=== PATIENT | female | born 1950 | race Caucasian/White ===

== ENCOUNTER 2020-10-29 13:03 | Inpatient (IN) | payer MEDICARE, BC ==
--- NOTE | 2020-10-29 13:59 | ED ---
General Adult HPI - General Chief complaint: Neuro Symptoms/Deficit Stated complaint: Confused/weakness/uti Time Seen by Provider: 10/29/20 13:05 Source: patient, RN notes reviewed, old records reviewed Mode of arrival: EMS Limitations: no limitations - History of Present Illness Initial comments: This a 70-year-old female who presents to the emergency department from [facility] patient was an inpatient there and has a history of brain cancer she was evaluated there for weakness. According to the report some altered mental status possibly even though the documentation in the ER did not mention that. Patient was sent here for a neuro consult patient was an inpatient there and we had no inpatient bed so they transferred to the ER. Patient herself has no complaints while lying in bed. Patient has had multiple falls according to the documentation she had multiple CAT scans there that showed no acute abnormality. Patient had no documented history of fever blood work was done and reviewed. - Related Data Allergies Allergy/AdvReac Type Severity Reaction Status Date / Time acetaminophen Allergy Anaphylaxis Verified 10/29/20 15:02 [From Darvocet-N] azithromycin [From Zithromax] Allergy Anaphylaxis Verified 10/29/20 15:02 chlordiazepoxide Allergy Anaphylaxis Verified 10/29/20 15:02 [From Librium] propoxyphene Allergy Anaphylaxis Verified 10/29/20 15:02 [From Darvocet-N] Review of Systems ROS Statement: Those systems with pertinent positive or pertinent negative responses have been documented in the HPI. ROS Other: All systems not noted in ROS Statement are negative. Past Medical History Past Medical History: Unable to Obtain History of Any Multi-Drug Resistant Organisms: None Reported Past Surgical History: Unable to Obtain Past Psychological History: No Psychological Hx Reported Smoking Status: Former smoker Past Alcohol Use History: None Reported Past Drug Use History: None Reported General Exam - General Exam Comments Initial Comments: GENERAL: Patient is well-developed and well-nourished. Patient is nontoxic and well- hydrated and is in no acute distress. ENT: Neck is soft and supple. No significant lymphadenopathy is noted. Oropharynx is clear. Moist mucous membranes. Neck has full range of motion without eliciting any pain. EYES: The sclera were anicteric and conjunctiva were pink and moist. Extraocular movements were intact and pupils were equal round and reactive to light. Eyelids were unremarkable. PULMONARY: Unlabored respirations. Good breath sounds bilaterally. No audible rales rhon chi or wheezing was noted. CARDIOVASCULAR: There is a regular rate and rhythm without any murmurs gallops or rubs. ABDOMEN: Soft and nontender with normal bowel sounds. SKIN: She has some old bruising on her legs and a slight bruise to the lower left side of her back NEUROLOGIC: Patient is alert and oriented 2. Cranial nerves II through XII are grossly intact. Motor and sensory are also intact. Normal speech, volume and content. Symmetrical smile. MUSCULOSKELETAL: Normal extremities with adequate strength and full range of motion. LYMPHATICS: No significant lymphadenopathy is noted PSYCHIATRIC: Difficult to evaluate secondary to the patient being oriented 2 only Limitations: no limitations Course Vital Signs 10/29/20 10/29/20 13:05 14:54 Temperature 98.5 F Pulse Rate 83 104 H Respiratory 16 18 Rate Blood Pressure 180/96 O2 Sat by Pulse 92 L 93 L Oximetry Medical Decision Making - Medical Decision Making I spoke with Dr. richmnod he agreed to admit the patient admitted the patient I consult neurology Disposition Clinical Impression: History of brain cancer, Generalized weakness, Altered mental status Disposition: ADMITTED IP TO THIS HOSP Referrals: None,Stated [Primary Care Provider] - 1-2 days Time of Disposition: 15:25
[2020-10-29] MEDS ORDERED: SODIUM CHLORIDE 0.9% 1,000 ML IV ONE (15:26)
[2020-10-29] MEDS ORDERED: ACETAMINOPHEN TAB 325 MG TAB PO PRN (18:09)
--- NOTE | 2020-10-29 18:25 | P.CNNES ---
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 History is obtained from patient's family members and medical records. Per family members patient has been more sleepy and more confused than normal since yesterday. She also complained of chest pain so they pursued medical attention. They did not see any seizure-like acitivty. At [place] she was told she had UTI. Because of altered mental status as a result the patient was transferred to our facility to our ER department for escalation of care for neurology evaluation. It seems that the patient had a CAT scan which showed no acute abnormality. There is no fevers that was reported at at outside facility. She shuffles her feet, falling a lot, hard time finding her words, walker more since July 2020 and her neurology team felt she was more rigid. Per the son who is at bedside, he stated that patient has been significantly declining for the past 1 1/2 month, having frequent falls, in which she has generalized weakness, has word finding difficulty. He felt that patient has fluctuation of her condition on/off but significantly worsening in 1 1/2 month. She would fall even though she uses a walker. The patient is following-up with Dr. Beauchamp's team and is seeing Dr. Beauchamp's team and they feels possibly she has ?Lewy Body Dementia. She was suppose to get Eamon scan tomorrow requested by Dr. Beauchamp's office. Her seizure was GTC and per family no seizure since on medications. She is on Keppra 750mg 2 tab bid and Dilantin 100mg 2 tab bid. She received radiation therapy end (6 weeks), chemotherapy (had it for 2 years, June 2019 and stopped after that because patient did not want to pursue with it). She used to follow-up with her neurosurgeon (over at [facility]). For her Oncologist she follows-up with Dr. Bruce. She had MRI Brain this past March 2020 and was told it was stable. She get them yearly basis. Workup in our facility consisted of: Initial vital signs is blood pressure of 180/96, heart rate of 83, respiratory of 16, temperature of 98.5 Fahrenheit orally and pulse ox of the 92 at room air. Review of Systems Review of system is limited and the pertitent positive and negative as per HPI. Past Medical History Past Medical History: Unable to Obtain Additional Past Medical History / Comment(s): Allergic Rhinitis, Gallstones, Brain CA:lemon sized tumor removed (2011). History of Any Multi-Drug Resistant Organisms: None Reported Past Surgical History: Unable to Obtain Additional Past Surgical History / Comment(s): colonoscopy, brain sx, breast biopsy Past Psychological History: No Psychological Hx Reported Smoking Status: Former smoker Past Alcohol Use History: None Reported Past Drug Use History: None Reported Medications and Allergies Home Medications Medication Instructions Recorded Confirmed Type Albuterol Inhaler [Ventolin Hfa 2 puff INHALATION RT-Q4H PRN 10/29/20 10/29/20 History Inhaler] Ascorbic Acid [Vitamin C] 250 mg PO DAILY 10/29/20 10/29/20 History Aspirin 81 mg PO DAILY 10/29/20 10/29/20 History Atorvastatin [Lipitor] 40 mg PO DAILY 10/29/20 10/29/20 History Calcium Carbonate/Vitamin D3 1 tab PO BID 10/29/20 10/29/20 History [Calcium 500 mg Chewable Tablet] Cholecalciferol [Vitamin D3 (25 25 mcg PO DAILY 10/29/20 10/29/20 History Mcg = 1000 Iu)] Escitalopram [Lexapro] 10 mg PO DAILY 10/29/20 10/29/20 History Fluticasone/Salmeterol [Advair 1 puff INHALATION RT-BID 10/29/20 10/29/20 History 250-50 Diskus] Multivitamin [Multivitamins Adult 1 tab PO DAILY 10/29/20 10/29/20 History Gummies] Omeprazole 20 mg PO DAILY 10/29/20 10/29/20 History Phenytoin Sodium Extended 200 mg PO BID 10/29/20 10/29/20 History [Dilantin] Umeclidinium [place] [Incruse 1 puff INHALATION RT-DAILY 10/29/20 10/29/20 History Ellipta] amLODIPine [Norvasc] 5 mg PO DAILY 10/29/20 10/29/20 History levETIRAcetam [Keppra] 500 mg PO BID 10/29/20 10/29/20 History lisinopriL 40 mg PO DAILY 10/29/20 10/29/20 History Allergies Allergy/AdvReac Type Severity Reaction Status Date / Time azithromycin [From Zithromax] Allergy Anaphylaxis Verified 10/29/20 17:46 chlordiazepoxide Allergy Anaphylaxis Verified 10/29/20 17:46 [From Librium] propoxyphene Allergy Anaphylaxis Verified 10/29/20 17:46 [From Darvocet-N] Physical Examination - Vital Signs Vital Signs: Vital Signs Temp Pulse Resp BP Pulse Ox 10/29/20 14:54 104 H 18 180/96 93 L 10/29/20 13:05 98.5 F 83 16 92 L Intake and Output 10/29/20 10/29/20 10/29/20 06:59 14:59 22:59 Other: Weight 97.522 kg GENERAL: The patient is lying in bed and does not seem in acute distress but seems restless. CHEST: The heart rate is regular rate rhythm. No murmurs to auscultation. No carotid bruit bilaterally. LUNG: Clear to auscultation bilaterally no wheezing noted throughout. Not labored breathing. ABDOMEN/GI: Bowel sounds present in all 4 quadrants. No tenderness to palpation throughout. NEUROLOGICAL: Higher mental function: The patient is awake, alert, oriented to self. She stated the year was in 0s. Could not tell me name of place. Upon showing her a pen she stated it was a pencil. With options she correctly named her son who is at bedside. Patient is following simple commands (thumbs up, squeezing finger and closing and opening eyes). Has word finding difficulty. No neglect. Cranial nerves: The pupils are round, equal and reactive to light. Visual torrez could not assess. Extraocular movement is able to look to right and left without difficulty. No facial weakness. No dysarthria. Could not assess rest because of her condition. Motor: Gait is deferred. The strength is able to raise all extremities above gravity without drift. Normal tone and bulk. Cerebellum: Could not assess. Sensation: Could not assess. Reflexes (right/left): 2+ throughout upper while lowers are 1+. Plantars are mute bilaterally. Assessment and Plan Assessment: Altered mental status with generalized weakness. 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 Beauchamp) Acute urinary tract infection (per outside facility) Acute chest pain Hypertension with presentation of blood pressure elevated Dyslipidemia Plan: I ordered a routine EEG. Ordered TSH, folate, vitamin B12 levels. Continued her Keppra 750mg 2 tab bid and Dilantin 100mg 2 tab bid (I started both IV for now). I'll get levels of her antiepileptic drugs. Will consider MRI of the brain with and without once the patient is more stable. Every 4 hours neuro checks. PT, OT and SKIVER OPERATOR are consulted. We'll defer the rest of the medical management to primary team. Notified the son, the patient needs to follow-up with her neurologist as outpatient for further evaluation of this suspicious of Lewy Body dementia (her neurologist suspected). The son will try to arrange patient to be living in a nursing facility. Recommend patient to follow-up with her neurologist within 1- 2 weeks as outpatient. The plan is discussed with the patient's son (Dalton) who is at bedside. Thank you for the consultation. Angel Luis Mckee M.D. Neuro-hospitalist Time with Patient: Greater than 30
[2020-10-29] MEDS ORDERED: ALBUTEROL NEBULIZED 2.5 MG/3 ML INHALATION PRN (18:37)
[2020-10-29 20:11] LABS: Phenytoin (Dilantin) 15.9 ug/mL
--- NOTE | 2020-10-29 20:38 | HP ---
HISTORY AND PHYSICAL DATE OF SERVICE: 10/29/2020 CHIEF COMPLAINTS: Weakness and confusion, change in mental status. HISTORY OF PRESENT ILLNESS: This 70-year-old woman with a past medical history of multiple medical problems, including allergic rhinitis, gallstones, history of brain cancer with a lemon- sized tumor removed in 2011, being followed by Dr. Esparza in the outpatient setting, was recently living with a son in a [id number] apartment. The patient was cooking for herself patient was noted to have a UTI for the last couple of days. Patient got on antibiotics, but the patient was progressively weak for the past several weeks, according to the family. The patient was using a walker, but the patient apparently had some falls also. Because of concerns, the patient was taken to [facility], where they kept the patient overnight. Because of lack of improvement and because of concerns of an underlying neurological etiology, the patient was transferred to [facility] for further evaluation and treatment. Currently the patient is confused, able to give only a sketchy history. Most of the history is taken from my discussion with the ER physician and discussion with the patient's son at the bedside at this time. Apparently the patient has poor social support, and her son goes to work all day. PAST MEDICAL HISTORY: History of allergic rhinitis, gallstone, history of brain lesion and surgery. MEDICATIONS: Home medications are multivitamins, calcium, Dilantin, omeprazole, vitamin D3, aspirin, vitamin C, lisinopril, Keppra, Lexapro, Norvasc Advair, Lipitor, Ventolin. ALLERGIES: ZITHROMAX, LIBRIUM, DARVOCET-N 100. FAMILY HISTORY: No history of heart disease or strokes in the family. SOCIAL HISTORY: Previous history of smoking. REVIEW OF SYSTEMS: Review of systems could not be taken; the patient is confused. PHYSICAL EXAMINATION: Patient is conscious, confused. Pulse 94, blood pressure 161/89, respiration 18, temperature 99.2, pulse ox 98% on room air. HEENT: Conjunctivae normal. Oral mucosa dry. NECK: No jugular venous distention. CARDIOVASCULAR: S1, S2 muffled. RESPIRATION: Breath sounds diminished at the bases. Scattered rhonchi and crackles. ABDOMEN: Soft, obese, non-tender. LEGS: No edema. No swelling. NERVOUS SYSTEM: Higher functions as mentioned earlier. Moves all 4 limbs. Mild diffuse weakness. LYMPHATICS: No lymph node palpable in neck, axillae or groin. SKIN: No ulcer, rash, bleeding. JOINTS: No active deforming arthropathy. LABS: Not available. ASSESSMENT: 1. Change in mental status, acute metabolic encephalopathy, multifactorial. 2. Possible acute urinary tract infection with sepsis. 3. History of brain lesion removal. 4. History of possible seizure disorder. 5. Gait dysfunction. 6. History of allergic rhinitis. 7. History of gallstones. 8. History of brain biopsy. 9. Hypertension. 10.Chronic obstructive pulmonary disease history. 11.Hyperlipidemia. 12.Obesity with body mass index of 34.7. 13.Gait dysfunction. 14.FULL CODE. RECOMMENDATIONS AND DISCUSSION: In this 70-year-old woman who presented with multiple complex medical issues, we will monitor the patient closely, continue the current medications, continue symptomatic treatment. Will initiate broad-spectrum IV antibiotics. IV phenytoin has been initiated by Neurology. We will obtain the old charts. Otherwise, EEG. Obtain the cultures. PT/OT evaluation. We will also consider possible ECF rehab. Resume the home medications. DVT prophylaxis. Prognosis is guarded because of multiple complex medical issues. Further recommendations to follow. Discussed with the patient's son at bedside, who understands and agrees. Further recommendations to follow. Home medications will be continued when they are confirmed. MMODL / IJN: [id number] / SHAYNA
[2020-10-29] MEDS: SYMBICORT 80-4.5 MCG INHALER INHALATION SCH (21:15)
[2020-10-29] MEDS: HEPARIN SODIUM,PORCINE/PF 5,000 UNIT/0.5 ML SYRINGE SQ SCH (22:04)
[2020-10-29] MEDS: levETIRAcetam IV 1,500 MG in SALINE 1 100ML.BAG IVPB SCH (22:04)
[2020-10-29] MEDS: PHENYTOIN SODIUM INJ 50 MG/ML 2 ML VIAL IVP SCH (22:56)
[2020-10-29] MEDS: CALCIUM CARB-VIT D 500 MG-5 MCG TAB PO SCH (22:56)
[2020-10-29 23:15] LABS: Appearance,Urine Clear (Clear); Bilirubin,Urine Negative (Negative); Blood,Urine Negative (Negative); Color,Urine Yellow; Glucose,Urine (UA) Negative (Negative); Ketones,Urine 3+ (Negative); Leukocyte Esterase,Urine Negative (Negative); Nitrite,Urine Negative (Negative); PH, Urine 6.5 (5.0-8.0); Protein,Urine Trace (Negative); Specific Gravity,Urine 1.017 (1.001-1.035); Urobilinogen,Urine <2.0 mg/dL (<2.0)
[2020-10-30] MEDS: SYMBICORT 80-4.5 MCG INHALER INHALATION SCH ×2 (07:26→19:51)
[2020-10-30] MEDS: IPRATROPIUM 0.5 MG/2.5 ML NEBU INHALATION SCH ×4 (07:26→19:50)
[2020-10-30 07:46] LABS: Basophils % (A) 0 %; Eosinophils # (A) 0.1 k/uL (0-0.7); Eosinophils % (A) 1 %; HCT 41.2 % (34.0-46.0); HGB 13.8 gm/dL (11.4-16.0); Lymphocytes # (A) 0.4 k/uL (1.0-4.8); Lymphocytes % (A) 7 %; MCH 31.2 pg (25.0-35.0); MCHC 33.5 g/dL (31.0-37.0); MCV 93.2 fL (80.0-100.0); Mean Platelet Volume 7.4; Monocytes # (A) 0.4 k/uL (0-1.0); Monocytes % (A) 6 %; Neutrophils # (A) 5.5 k/uL (1.3-7.7); Neutrophils % (A) 84 %; Platelet Count 170 k/uL (150-450); Poikilocytosis Slight; RBC 4.42 m/uL (3.80-5.40); WBC 6.6 k/uL (3.8-10.6)
[2020-10-30] MEDS: ASPIRIN 81 MG PO SCH (10:54)
[2020-10-30] MEDS: ATORVASTATIN 40 MG TAB PO SCH (10:55)
[2020-10-30] MEDS: PANTOPRAZOLE 40 MG TABLET PO SCH (10:55)
[2020-10-30] MEDS: lisinopriL 20 MG TAB PO SCH (10:55)
[2020-10-30] MEDS: FOLIC ACID 1 MG TAB PO SCH (10:55)
[2020-10-30] MEDS: amLODIPine 5 MG TAB PO SCH (10:55)
[2020-10-30] MEDS: MULTIVITAMINS, THERA 1 EACH TAB PO SCH (10:55)
[2020-10-30] MEDS: ASCORBIC ACID 500 MG TAB PO SCH (10:55)
[2020-10-30] MEDS: CALCIUM CARB-VIT D 500 MG-5 MCG TAB PO SCH ×2 (10:55→20:25)
[2020-10-30] MEDS: PHENYTOIN SODIUM INJ 50 MG/ML 2 ML VIAL IVP SCH (10:56)
[2020-10-30] MEDS: THIAMINE 100 MG TAB PO SCH (10:56)
[2020-10-30] MEDS: HEPARIN SODIUM,PORCINE/PF 5,000 UNIT/0.5 ML SYRINGE SQ SCH ×2 (10:56→20:25)
[2020-10-30] MEDS: CHOLECALCIFEROL 25 MCG (1000 IU) TABLET PO SCH (10:56)
[2020-10-30] MEDS: levETIRAcetam IV 1,500 MG in SALINE 1 100ML.BAG IVPB SCH (11:39)
[2020-10-30 12:22] LABS: Folate, Serum >24.0 ng/mL
[2020-10-30 14:11] LABS: African American GFR (CKD) 105.5 (60.0-200.0); Anion Gap 11.5 mmol/L (4.00-12.00); BUN/Creat Ratio 16.67 Ratio (12.00-20.00); Calcium 9.1 mg/dL (8.7-10.3); Carbon Dioxide 25.5 mmol/L (21.6-31.8); Non-African American GFR(CKD) 91.1 (60.0-200.0); Potassium 3.3 mmol/L (3.5-5.5)
[2020-10-30 14:36] VITALS: BMI 34.7
--- NOTE | 2020-10-30 16:03 | EEG ---
ELECTROENCEPHALOGRAM REPORT DATE OF SERVICE: 10/30/2020. CLINICAL HISTORY: This is a 70-year-old woman with a history of left frontal cancer, status post resection, seizure, who presents with altered mental status. The video EEG is obtained to evaluate for seizure epileptiform activity. RELEVANT MEDICATION: The patient is on Keppra as well as the Dilantin. EEG TYPE: A routine 21-channel EEG is performed with video using the 10/20 electrode placement system. DESCRIPTION: Awake and drowsy state is obtained. During awake state, the background consists of 7- 7.5 hertz activity that is well modulated and well sustained over the right while the posterior-dominant rhythm over the left consists of 6-7 hertz activity. During drowsiness there is slowing and attenuation of background activity. There was no physiological sleep architecture. There is occasional to frequent delta slowing over the left frontal central temporal parietal region. There is high amplitude activity over the left frontal central temporal region. Interictal and ictal is none. ACTIVATION PROCEDURE: Photic stimulation did not evoke a posterior driving response. There is no abnormality during the photic stimulation. CLINICAL INTERPRETATION: This is an abnormal routine EEG. The background is asymmetrical and is mild over the right while mild to moderate over the left. The focal slowing, as stated in the body of the report, is suggestive of focal cerebral dysfunction in the involved region. The breach rhythm is consistent with the patient's history of skull defect. There are no epileptiform discharges or seizure on the EEG. Clinical correlation is recommended. MMYULIYA / IJN: [id number] / MTDD
--- NOTE | 2020-10-30 17:30 | PN ---
PROGRESS NOTE DATE OF SERVICE: 10/30/2020 This 70-year-old woman who was admitted with weakness and confusion had possible acute UTI with sepsis. The patient was recently treated for UTI in the outpatient setting. The patient had hypokalemia. No chest pain. No palpitations. No fever. PHYSICAL EXAMINATION: On exam patient is conscious but confused. Pulse 72, blood pressure 135/64, respirations 16, temperature 98.7, pulse ox 93% on room air. HEENT: Conjunctivae normal. NECK: No jugular venous distention. CARDIOVASCULAR: S1, S2 muffled. RESPIRATION: Breath sounds diminished at the bases. Scattered rhonchi. ABDOMEN: Soft. LEGS: No edema. No swelling. NERVOUS SYSTEM: No focal deficit. LABS: CBC, BMP noted. Potassium 3.5. Other labs are reviewed. Cultures are negative so far. ASSESSMENT: 1. Change in mental status, acute metabolic encephalopathy, multifactorial. 2. Possible acute urinary tract infection with sepsis. 3. Hypokalemia. 4. History of brain lesion removal. 5. History of possible acute seizure disorder. 6. Gait dysfunction. 7. History of allergic rhinitis. 8. History of gallstones. 9. History of brain biopsy. 10.Hypertension. 11.History of chronic obstructive pulmonary disease. 12.Hyperlipidemia. 13.Obesity with body mass index of 34.7. 14.Gait dysfunction. 15.History of oligodendroglioma. 16.FULL CODE. RECOMMENDATIONS AND DISCUSSION: I recommend to continue current medications, continue symptomatic treatment. Otherwise, Neurology has also seen the patient and recommended to continue with conservative line of management. PT/OT evaluation also. We will continue to monitor. Dr. Beauchamp is also working up the patient in the outpatient setting. Phenytoin level is 15.9. Discussed with the family, who understands and agrees. Further recommendations to follow. MMODL / IJN: [id number] /
--- NOTE | 2020-10-30 18:32 | P.PN ---
Subjective Progress Note Date: 10/30/20 Patient is seen at bedside and and the was notified by nursing staff that she is less agitated and restless compared to yesterday. Currently she is having her lunch upon seeing her. Objective - Vital Signs Vital signs: Vital Signs Temp 98.7 F 10/30/20 11:12 Pulse 78 10/30/20 15:32 Resp 16 10/30/20 11:12 BP 134/65 10/30/20 11:12 Pulse Ox 93 L 10/30/20 11:12 Intake & Output 10/29/20 10/30/20 10/30/20 18:59 06:59 18:59 Intake Total 590 1050 Output Total 450 400 Balance 140 650 Weight 97.522 kg 97.522 kg 97.522 kg Intake: Intake, IV Titration 750 Amount Sodium Chloride 0.9% 1, 600 000 ml @ 75 mls/hr IV . [id number] Rx#:[id number] cefTRIAXone 1 gm In 50 Sodium Chloride 0.9% 50 ml @ 100 mls/hr IVPB Q24HR [facility] Rx#:[id number] levETIRAcetam IV 1,500 mg 100 In Saline 1 100ml.bag @ 400 mls/hr IVPB Q12HR [facility] Rx#:[id number] Oral 590 300 Output: Urine 250 400 Straight 400 Emesis 200 Other: Voiding Method Diaper Indwelling Catheter # Voids 2 - Exam GENERAL: The patient is lying in bed and does not seem in acute distress. Is not restless and seems more cooperative. Is having her lunch. NEUROLOGICAL: Higher mental function: The patient is awake, alert, oriented to self. She could not tell me place or time. She able to name watch correctly. Patient is following simple commands (thumbs up, squeezing finger and closing and opening eyes). Has word finding difficulty and seems to have preservation of words. No neglect. Cranial nerves: The pupils are round, equal and reactive to light. Visual torrez could not assess. Extraocular movement is able to look to right and left without difficulty. No facial weakness. No dysarthria. Could not assess rest because of her condition. Motor: Gait is deferred. The strength is able to raise all extremities above gravity without drift. Normal tone and bulk. Cerebellum: Could not assess. Sensation: Could not assess. Reflexes (right/left): 2+ throughout upper while lowers are 1+. Plantars are mute bilaterally. WORK-UP: CBC with differential is within normal limits. Creatinine is 0.6, calcium is 9.1 and sodium is 138 which is within normal limits. Serum vitamin B12 is 651, folate level serum is more than 24 and TSH is 1.460 and all within normal limits. Dilantin level is 15.9 which is conservative therapeutic range. She had a CAT scan at outside facility which showed no acute abnormality. - Labs CBC & Chem 7: 10/30/20 07:17 10/30/20 07:17 Labs: Abnormal Lab Results - Last 24 Hours (Table) 10/29/20 10/30/20 10/30/20 Range/Units 22:56 07:17 07:17 Lymphocytes # 0.4 L (1.0-4.8) k/uL Potassium 3.3 L (3.5-5.5) mmol/L Urine Protein Trace H (Negative) Urine Ketones 3+ H (Negative) Microbiology - Last 24 Hours (Table) 10/29/20 22:56 Urine Culture - Preliminary Urine,Catheterized Assessment and Plan Assessment: Altered mental status with generalized weakness. Encephalopathy likely due to underlying UTI ---is less restless and more cooperative today compared to yesterday. 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 Beauchamp) Acute urinary tract infection (per outside facility) Acute chest pain Hypertension with presentation of blood pressure elevated Dyslipidemia Plan: * Continued her Keppra 750mg 2 tab bid and Dilantin 100mg 2 tab bid (and placed her back from IV to PO). * Ordered MRI of the brain with and without. * Pending Keppra level. * Routine EEG on 10/30/2020 (preliminary read): This is an abnormal routine EEG. The background is asymmetrical and is mild over the right and mild to moderate over the left. The focal slowing over the left frontal/central/temporal/parietal region is suggestive of focal cerebral dysfunction in the involved region. The breach rhythm is consistent with the patient history of skull defect. There are no epileptiform discharges or seizure on the EEG. * She is on her home dose of aspirin 81, Lipitor 40 mg daily at bedtime. * She is on folic acid 1 mg daily. * Every 4 hours neuro checks. * PT, OT and SMOKE EATER are consulted. * We'll defer the rest of the medical management to primary team. * Notified the son, the patient needs to follow-up with her neurologist as outpatient for further evaluation of this suspicious of Lewy Body dementia (her neurologist suspected). The son will try to arrange patient to be living in a nursing facility. Recommend patient to follow-up with her neurologist within 1-2 weeks as outpatient. The plan is discussed with the patient's nurse. Angel Luis Mckee M.D. Neuro-hospitalist Time with Patient: Less than 30
[2020-10-30] MEDS: PHENYTOIN SODIUM EXTENDED 100 MG CAP PO SCH (20:25)
[2020-10-30] MEDS: SODIUM CHLORIDE 0.9% 1,000 ML IV SCH (20:25)
[2020-10-31] MEDS: PHENYTOIN SODIUM EXTENDED 100 MG CAP PO SCH ×2 (07:58→20:45)
[2020-10-31] MEDS: PANTOPRAZOLE 40 MG TABLET PO SCH (07:59)
[2020-10-31] MEDS: FOLIC ACID 1 MG TAB PO SCH (07:59)
[2020-10-31] MEDS: THIAMINE 100 MG TAB PO SCH ×3 (08:00→08:10)
[2020-10-31] MEDS: HEPARIN SODIUM,PORCINE/PF 5,000 UNIT/0.5 ML SYRINGE SQ SCH ×2 (08:01→20:45)
[2020-10-31] MEDS: CALCIUM CARB-VIT D 500 MG-5 MCG TAB PO SCH ×2 (08:05→20:45)
[2020-10-31] MEDS: ASPIRIN 81 MG PO SCH (08:06)
[2020-10-31] MEDS: ASCORBIC ACID 500 MG TAB PO SCH (08:06)
[2020-10-31] MEDS: lisinopriL 20 MG TAB PO SCH (08:07)
[2020-10-31] MEDS: CHOLECALCIFEROL 25 MCG (1000 IU) TABLET PO SCH (08:08)
[2020-10-31] MEDS: ATORVASTATIN 40 MG TAB PO SCH (08:08)
[2020-10-31] MEDS: amLODIPine 5 MG TAB PO SCH (08:09)
[2020-10-31] MEDS: MULTIVITAMINS, THERA 1 EACH TAB PO SCH (08:09)
[2020-10-31] MEDS: SYMBICORT 80-4.5 MCG INHALER INHALATION SCH ×2 (08:24→19:37)
[2020-10-31] MEDS: IPRATROPIUM 0.5 MG/2.5 ML NEBU INHALATION SCH ×4 (08:24→19:36)
[2020-10-31 08:51] LABS: Levetiracetam (Keppra) 16.6 ug/mL (3.0-60.0)
--- NOTE | 2020-10-31 13:17 | MR ---
EXAMINATION TYPE: MR brain wo/w con DATE OF EXAM: 10/31/2020 COMPARISON: Outside head CT 3 days ago HISTORY: altered mental status Hx of left frontal cancer TECHNIQUE: Multiplanar, multisequence images of the brain and brainstem is performed without and with IV contras t, utilizing 10 mL intravenous Gadavist . FINDINGS: Diffusion weighted images demonstrate no evidence of a recent infarct or other diffusion ab normality. There is artifact from left frontal craniotomy change. There is persistent CSF cleft over the left fr ontal lobe presumed resection cavity with local mass effect and slight over the midline extension red emonstrated. There is background mild to moderate diffuse ventricular and sulcal prominence. There ar e multifocal and confluent areas of T2 hyperintensity throughout the white matter greatest over the l eft coronal radiata standing superiorly and over the right frontal lobe. Findings are nonspecific. Co rrelate for history of radiation treatment to this level. There is abnormal extension of T2 hyperinte nsity throughout the temporal lobes bilaterally left greater than right with greater medial involveme nt. Involvement in the brain stem and level of soledad is noted. Midline structures demonstrate normal morphology. The craniocervical junction appears within normal limits. Post contrast images demonstrate dense oval enhancing mass superior left temporal lobe measuring 1.7 x 1.0 cm axial image 32 x 1.4 cm craniocaudal dimension coronal image 42 with some adjacent curviline ar and punctate enhancement extending anteriorly inferiorly from this lesion into more of the left te mporal lobe. There is also a second area of dense curvilinear enhancement along the inferior posterio r margin of the resection cavity which has some extension into the anterior hemispheric fissure also extension crossing the midline into the deep right frontal lobe immediately adjacent to the right fro ntal horn with thickened linear appearance. More mild left suspicious linear enhancement over the sup erior anterior aspect of the resection cavity. There is some irregular linear nodular enhancement ext ending from the first described lesion superiorly and anteriorly to the inferior posterior aspect of the resection cavity at the second area of suspicious enhancement. The dural venous sinuses appear patent. The visualized sinuses are clear and the globes are intact. IMPRESSION: Posttreatment changes redemonstrated. Residual or recurrent active neoplasm is strongly s uspected as detailed above extending from the posterior inferior margin of the resection cavity throu gh the inferior left frontal lobe into the superior temporal region. Right frontal lobe extension als o noted. Infiltrative appearance noted. Correlation with old outside MRI imaging may be beneficial to assess for change.
--- NOTE | 2020-10-31 19:04 | P.PN ---
Subjective Progress Note Date: 10/31/20 The patient seen at bedside and she is about the same today compared to yesterday. She remains to be the less agitated and restless compared to initial presentation. There is no focal deficit. Objective - Vital Signs Vital signs: Vital Signs Temp 98.4 F 10/31/20 12:49 Pulse 80 10/31/20 16:06 Resp 17 10/31/20 12:49 BP 126/84 10/31/20 12:49 Pulse Ox 94 L 10/31/20 12:49 Intake & Output 10/30/20 10/31/20 10/31/20 18:59 06:59 18:59 Intake Total 1050 1790 Output Total 400 300 600 Balance 650 1490 -600 Weight 97.522 kg 97.522 kg Intake: Intake, IV Titration 750 600 Amount Sodium Chloride 0.9% 1, 600 000 ml @ 50 mls/hr IV . Q20H [facility] Rx#:[id number] Sodium Chloride 0.9% 1, 600 000 ml @ 75 mls/hr IV . [id number] [facility] Rx#:[id number] cefTRIAXone 1 gm In 50 Sodium Chloride 0.9% 50 ml @ 100 mls/hr IVPB Q24HR [facility] Rx#:[id number] levETIRAcetam IV 1,500 mg 100 In Saline 1 100ml.bag @ 400 mls/hr IVPB Q12HR [facility] Rx#:[id number] Oral 300 1190 Output: Urine 400 300 600 Straight 400 300 600 Other: Voiding Method Indwelling Catheter Indwelling Catheter Indwelling Catheter - Exam GENERAL: The patient is lying in bed and does not seem in acute distress. Is not restless and seems more cooperative. Is having her lunch. NEUROLOGICAL: Higher mental function: The patient is awake, alert, oriented to self. She could not tell me place or time. She able to name watch correctly. Patient is following simple commands (thumbs up, squeezing finger and closing and opening eyes). Has word finding difficulty and seems to have preservation of words. No neglect. Cranial nerves: The pupils are round, equal and reactive to light. Visual torrez could not assess. Extraocular movement is able to look to right and left without difficulty. No facial weakness. No dysarthria. Could not assess rest because of her condition. Motor: Gait is deferred. The strength is able to raise all extremities above g ravity without drift. Normal tone and bulk. Cerebellum: Could not assess. Sensation: Could not assess. Reflexes (right/left): 2+ throughout upper while lowers are 1+. Plantars are mute bilaterally. WORK-UP: CBC with differential is within normal limits. Creatinine is 0.6, calcium is 9.1 and sodium is 138 which is within normal limits. Serum vitamin B12 is 651, folate level serum is more than 24 and TSH is 1.460 and all within normal limits. Total Dilantin level is 15.9 and free dilantin is 1.5 which are within therapeutic range. Keppra level is 16.6 (normal) Routine EEG on 10/30/2020: This is an abnormal routine EEG. The background is asymmetrical and is mild over the right and mild to moderate over the left. The focal slowing over the left frontal/central/temporal/parietal region is suggestive of focal cerebral dysfunction in the involved region. The breach rhythm is consistent with the patient history of skull defect. There are no epileptiform discharges or seizure on the EEG. MR the brain with and without is reported as post treatment changes redemonstrated. Residual or recurrent active neoplasm is strongly suspected as detailed above extending from the left posteroinferior margin of the resection cavity through the inferior left frontal lobe into the superior temporal region. Right frontal lobe extension also noted. Infiltrative appearance noted. C orrelation with old outside MRI imaging may be beneficial to assess for change. She had a CAT scan at outside facility which showed no acute abnormality. - Labs CBC & Chem 7: 10/30/20 07:17 10/30/20 07:17 Labs: Abnormal Lab Results - Last 24 Hours (Table) 10/29/20 Range/Units 19:39 RBC Folate 1,105 H (280 - 791) ng/mL Microbiology - Last 24 Hours (Table) 10/29/20 22:56 Urine Culture - Final Urine,Catheterized 10/29/20 19:39 Blood Culture - Preliminary Blood No Growth after 24 hours Assessment and Plan Assessment: Altered mental status with generalized weakness. Encephalopathy likely due to underlying UTI ---is less restless and more cooperative today compared to yesterday. 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 Beauchamp) Acute urinary tract infection (per outside facility) Acute chest pain Hypertension with presentation of blood pressure elevated Dyslipidemia Plan: * Continued her Keppra 750mg 2 tab bid and Dilantin 100mg 2 tab bid (and placed her back from IV to PO). * * She is on her home dose of aspirin 81, Lipitor 40 mg daily at bedtime. * She is on folic acid 1 mg daily. * MRI the brain with and without is reported as post treatment changes redemonstrated. Residual or recurrent active neoplasm is strongly suspected as detailed above extending from the left posteroinferior margin of the resection cavity through the inferior left frontal lobe into the superior temporal region. Right frontal lobe extension also noted. Infiltrative appearance noted. Correlation with old outside MRI imaging may be beneficial to assess for change. * Because of MRI Finding, recommend to follow-up with her neuro-oncologist and neurologist for further evaluation as inpatient (we have no old images to compared) and I feel this is more outpatient evaluation. * Every 4 hours neuro checks. * PT, OT and MOTION PICTURE CRITIC are consulted. * We'll defer the rest of the medical management to primary team. * Notified the son, the patient needs to follow-up with her neurologist as outpatient for further evaluation of this suspicious of Lewy Body dementia (her neurologist suspected). The son will try to arrange patient to be living in a nursing facility. Recommend patient to follow-up with her neurologist within 1-2 weeks as outpatient. The plan is discussed with the patient's nurse and the Nurse Practioner from the primary team. There is no further neurological work-up. Neurology will sign off. Please reconsult if needed. Angel Luis Mckee M.D. Neuro-hospitalist Time with Patient: Less than 30
[2020-10-31] MEDS: SODIUM CHLORIDE 0.9% 1,000 ML IV SCH (20:45)
--- NOTE | 2020-11-01 03:53 | P.PN ---
Subjective Progress Note Date: 10/31/20 This is a 70-year-old female who was recently admitted with increased confusion along with possible acute urinary tract infection with sepsis, present on admission and is being closely monitored. Patient continues on IV antibiotics and urine culture showing no growth. Patient was recently treated outpatient for UTI. Patient had MRI of the brain done showing residual or recurrent active neoplasm is strongly suspected extending from the left posteroinferior margin of the resection cavity through the inferior left frontal lobe into the superior temporal region. Right frontal lobe extension also noted. Infiltrative appearance noted. Correlation with old outside MRI imaging may be beneficial to assess for change. No reports of chest pain or palpitations. Denies any shortness of breath. Patient up with multiple assistance and continued unsteadiness and gait dysfunction. Will repeat am labs. Review of systems: unable to obtain as patient continues to be confused Active Medications Acetaminophen (Acetaminophen Tab 325 Mg Tab) 650 mg PO Q4HR PRN PRN Reason: Fever and/ or Pain Last Admin: 10/29/20 18:13 Dose: 650 mg Documented by: Albuterol Sulfate (Albuterol Nebulized 2.5 Mg/3 Ml) 2.5 mg INHALATION RT-Q4H PRN PRN Reason: Shortness Of Breath Amlodipine Besylate (Amlodipine 5 Mg Tab) 5 mg PO DAILY [facility] Last Admin: 10/31/20 08:09 Dose: 5 mg Documented by: Ascorbic Acid (Ascorbic Acid 500 Mg Tab) 250 mg PO DAILY [facility] Last Admin: 10/31/20 08:06 Dose: 250 mg Documented by: Aspirin (Aspirin 81 Mg) 81 mg PO DAILY [facility] Last Admin: 10/31/20 08:06 Dose: 81 mg Documented by: Atorvastatin Calcium (Atorvastatin 40 Mg Tab) 40 mg PO DAILY [facility] Last Admin: 10/31/20 08:08 Dose: 40 mg Documented by: Budesonide/Formoterol Fumarate (Symbicort 80-4.5 Mcg Inhaler) 2 puff INHALATION RT-BID [facility] Last Admin: 10/31/20 19:37 Dose: 2 puff Documented by: Calcium Carbonate (Calcium Carb-Vit D 500 Mg-5 Mcg Tab) 1 each PO BID [facility] Last Admin: 10/31/20 20:45 Dose: 1 each Documented by: Cholecalciferol (Cholecalciferol 25 Mcg (1000 Iu) Tablet) 25 mcg PO DAILY [facility] Last Admin: 10/31/20 08:08 Dose: 25 mcg Documented by: Folic Acid (Folic Acid 1 Mg Tab) 1 mg PO DAILY@1200 [facility] Last Admin: 10/31/20 07:59 Dose: 1 mg Documented by: Heparin Sodium (Porcine) (Heparin Sodium,Porcine/Pf 5,000 Unit/0.5 Ml Syringe) 5,000 unit SQ Q12HR [facility] Last Admin: 10/31/20 20:45 Dose: 5,000 unit Documented by: Ceftriaxone Sodium 1 gm/ (Sodium Chloride) 50 mls @ 100 mls/hr IVPB Q24HR [facility] Last Admin: 10/31/20 08:05 Dose: 100 mls/hr Documented by: Sodium Chloride (Saline 0.9%) 1,000 mls @ 50 mls/hr IV .Q20H [facility] Last Admin: 10/31/20 20:45 Dose: 50 mls/hr Documented by: Ipratropium [place] (Ipratropium 0.5 Mg/2.5 Ml Nebu) 0.5 mg INHALATION RT-QID [facility] Last Admin: 10/31/20 19:36 Dose: 0.5 mg Documented by: Levetiracetam (Levetiracetam 750 Mg Tab) 1,500 mg PO Q12HR [facility] Last Admin: 10/31/20 20:44 Dose: 1,500 mg Documented by: Lisinopril (Lisinopril 20 Mg Tab) 40 mg PO DAILY [facility] Last Admin: 10/31/20 08:07 Dose: 40 mg Documented by: Multivitamins (Multivitamins, Thera 1 Each Tab) 1 each PO DAILY [facility] Last Admin: 10/31/20 08:09 Dose: 1 each Documented by: Pantoprazole Sodium (Pantoprazole 40 Mg Tablet) 40 mg PO AC-BRKFST [facility] Last Admin: 10/31/20 07:59 Dose: 40 mg Documented by: Phenytoin Sodium (Phenytoin Sodium Extended 100 Mg Cap) 200 mg PO BID [facility] Last Admin: 10/31/20 20:45 Dose: 200 mg Documented by: Thiamine HCl (Thiamine 100 Mg Tab) 100 mg PO DAILY@1200 [facility] Last Admin: 10/31/20 08:10 Dose: 100 mg Documented by: Objective - Vital Signs Vital signs: Vital Signs Temp 99.5 F 10/31/20 04:45 Pulse 76 10/31/20 08:48 Resp 16 08/20/21 04:45 BP 162/81 10/31/20 04:45 Pulse Ox 91 L 10/31/20 04:45 Intake & Output 10/30/20 10/31/20 10/31/20 18:59 06:59 18:59 Intake Total 1050 1790 Output Total 400 300 600 Balance 650 1490 -600 Weight 97.522 kg Intake: Intake, IV Titration 750 600 Amount Sodium Chloride 0.9% 1, 600 000 ml @ 50 mls/hr IV . Q20H [facility] Rx#:[id number] Sodium Chloride 0.9% 1, 600 000 ml @ 75 mls/hr IV . [id number] [facility] Rx#:[id number] cefTRIAXone 1 gm In 50 Sodium Chloride 0.9% 50 ml @ 100 mls/hr IVPB Q24HR [facility] Rx#:[id number] levETIRAcetam IV 1,500 mg 100 In Saline 1 100ml.bag @ 400 mls/hr IVPB Q12HR [facility] Rx#:[id number] Oral 300 1190 Output: Urine 400 300 600 Straight 400 300 600 Other: Voiding Method Indwelling Catheter Indwelling Catheter Indwelling Catheter - Exam Gen: This is a 70-year-old female lethargic but arousable. Alert and oriented x 1-2. Confused. temp is 98.4F, pulse is 76, respirations are 17, blood pressure is 126/84, oxygen saturation is 94% on room air. HEENT: Head is atraumatic, normocephalic. Pupils equal, round. Sclerae is anict josh. NECK: Supple. No JVD. No lymphadenopathy. No thyromegaly. LUNGS: Diminished breath sounds noted with some scattered rhonchi noted. No intercostal retractions. HEART: s1, s2 muffled ABDOMEN: Soft. obese. Bowel sounds are present. No masses. No tenderness. EXTREMITIES: No pedal edema. No calf tenderness. NEUROLOGICAL: Patient is awake, alert and oriented x1-2. diffusely weak - Labs CBC & Chem 7: 10/30/20 07:17 10/30/20 07:17 Labs: Abnormal Lab Results - Last 24 Hours (Table) 10/30/20 Range/Units 07:17 Potassium 3.3 L (3.5-5.5) mmol/L Microbiology - Last 24 Hours (Table) 10/29/20 19:39 Blood Culture - Preliminary Blood No Growth after 24 hours 10/29/20 22:56 Urine Culture - Preliminary Urine,Catheterized Assessment and Plan Assessment: change in mental status, acute about encephalopathy, multifactorial Possible acute urinary tract infection with sepsis, present on admission Hypokalemia history of brain lesion removal history of possible acute seizure disorder gait dysfunction History of ALLERGIC rhinitis History of gallstones History of brain biopsy hypertension history of chronic obstructive pulmonary disease Hyperlipidemia obesity with a body mass index of 34.7 History of oligodendroglioma Full code Recommendations and discussion: recommend to continue with current medications and management. Patient potassium was 3.3 and will repeat am labs. Patient continues on IV antibiotics for possible acute UTI and cultures are negative. Patient mentation slightly improved per nursing staff and continues to be extremely lethargic and confused. Patient had MRI of the brain as mentioned previously. Neurology evaluated the patient recommending to continue with further workup with her neurologist Dr. Beauchamp in the outpatient setting. Social work following and working on accepting facility for continued rehab. PT/OT to evaluate the patient. Due to multiple complex medical issues, prognosis remains guarded.
[2020-11-01 07:00] LABS: Basophils % (A) 0 %; Eosinophils # (A) 0.3 k/uL (0-0.7); Eosinophils % (A) 6 %; HCT 41.8 % (34.0-46.0); HGB 13.9 gm/dL (11.4-16.0); Lymphocytes # (A) 0.4 k/uL (1.0-4.8); Lymphocytes % (A) 7 %; MCHC 33.2 g/dL (31.0-37.0); MCV 93.3 fL (80.0-100.0); Mean Platelet Volume 7.5; Monocytes # (A) 0.4 k/uL (0-1.0); Monocytes % (A) 7 %; Neutrophils # (A) 4.3 k/uL (1.3-7.7); Neutrophils % (A) 79 %; Platelet Count 175 k/uL (150-450); RBC 4.48 m/uL (3.80-5.40); RDW 14.4 % (11.5-15.5); WBC 5.4 k/uL (3.8-10.6)
[2020-11-01 07:07] LABS: African American GFR (CKD) >90 (>60 ml/min/1.73 sqM); Anion Gap 5 mmol/L; Blood Urea Nitrogen 11 mg/dL (7-17); Carbon Dioxide 28 mmol/L (22-30); Chloride 106 mmol/L (98-107); Glucose 106 mg/dL (74-99); Non-African American GFR(CKD) >90 (>60 ml/min/1.73 sqM); Potassium 3.3 mmol/L (3.5-5.1); Sodium 139 mmol/L (137-145)
[2020-11-01] MEDS: HEPARIN SODIUM,PORCINE/PF 5,000 UNIT/0.5 ML SYRINGE SQ SCH ×2 (08:38→21:14)
[2020-11-01] MEDS: SODIUM CHLORIDE 0.9% 1,000 ML IV SCH (08:38)
[2020-11-01] MEDS: CHOLECALCIFEROL 25 MCG (1000 IU) TABLET PO SCH (08:39)
[2020-11-01] MEDS: THIAMINE 100 MG TAB PO SCH (08:39)
[2020-11-01] MEDS: PANTOPRAZOLE 40 MG TABLET PO SCH (08:39)
[2020-11-01] MEDS: amLODIPine 5 MG TAB PO SCH (08:39)
[2020-11-01] MEDS: ATORVASTATIN 40 MG TAB PO SCH (08:39)
[2020-11-01] MEDS: ASPIRIN 81 MG PO SCH (08:39)
[2020-11-01] MEDS: MULTIVITAMINS, THERA 1 EACH TAB PO SCH (08:39)
[2020-11-01] MEDS: CALCIUM CARB-VIT D 500 MG-5 MCG TAB PO SCH ×2 (08:39→21:14)
[2020-11-01] MEDS: FOLIC ACID 1 MG TAB PO SCH (08:39)
[2020-11-01] MEDS: PHENYTOIN SODIUM EXTENDED 100 MG CAP PO SCH ×2 (08:39→21:14)
[2020-11-01] MEDS: lisinopriL 20 MG TAB PO SCH (08:39)
[2020-11-01] MEDS: ASCORBIC ACID 500 MG TAB PO SCH (08:39)
[2020-11-01] MEDS: IPRATROPIUM 0.5 MG/2.5 ML NEBU INHALATION SCH ×4 (09:16→20:25)
[2020-11-01] MEDS: SYMBICORT 80-4.5 MCG INHALER INHALATION SCH ×2 (09:16→20:24)
[2020-11-01] MEDS ORDERED: Potassium Replacement Protocol 1 EACH MISC MISCELLANE PRN (11:46)
[2020-11-01] MEDS ORDERED: Magnesium Replacement Protocol 1 EACH MISC MISCELLANE PRN (11:46)
[2020-11-01] MEDS: POTASSIUM CHLORIDE ER 20 MEQ TAB.ER PO SCH (12:18)
--- NOTE | 2020-11-01 12:22 | PN ---
PROGRESS NOTE DATE OF SERVICE: 11/01/2020 INTERVAL HISTORY: This 70-year-old woman who was admitted with change in mental status which was thought to be multifactorial had UTI also. The patient was seen by Neurology. The patient has a history of oligodendroglioma previously. The MRI scan showed post-treatment changes more stable residual or recurrent active neoplasm is strongly suspected. The patient is being closely monitored at this time. Right frontal lobe extension is also possible. Neurology is following the patient. Past medical history reviewed. Review of systems could not be taken; the the patient is still confused. CURRENT MEDICATIONS: Current medications are reviewed and include Tylenol, Ventolin, Norvasc, vitamin C, aspirin, Lipitor, Symbicort, Os-Adolfo, Rocephin, folic acid, Keppra, Zestril, Dilantin. Doses are reviewed. PHYSICAL EXAMINATION: Patient is conscious, confused. Pulse 74, blood pressure 162/82, respiration 18, temperature 98.2, pulse ox 93% on room air. HEENT: Conjunctivae normal. NECK: No jugular venous distention. CARDIOVASCULAR: S1, S2 muffled. RESPIRATION: Breath sounds diminished at the bases. A few scattered rhonchi. ABDOMEN: Soft, nontender. LEGS: No edema. No swelling. NERVOUS SYSTEM: Nervous systems could not be examined completely. Diffusely weak. LAB INVESTIGATIONS: Lab investigations are at this time show CBC within normal limits. Otherwise, sodium 139, potassium 3.3. ASSESSMENT: 1. Change in mental status, acute metabolic encephalopathy, multifactorial. 2. Acute urinary tract infection with sepsis, present on admission. 3. Possible recurrence or residual effect of the oligodendroglioma on the MRI with right frontal extension possibly. 4. Hypokalemia. 5. History of brain lesion removal. 6. History acute seizure disorder. 7. History of gait dysfunction. 8. Allergic rhinitis. 9. History of gallstones. 10.Hypertension. 11.History of chronic obstructive pulmonary disease. 12.Hyperlipidemia. 13.Obesity with body mass index of 34.7. 14.FULL CODE. RECOMMENDATIONS AND DISCUSSION: I recommend to continue current medications, continue with symptomatic treatment. Continue with antibiotics. The cultures are negative so far. I would also recommend that the patient follow closely with Neurology. Supplement potassium. We will continue to monitor. The prognosis is guarded because of multiple complex medical issues. Further recommendations to follow. MMODL / IJN: [id number] / MTDD
--- NOTE | 2020-11-01 16:08 | P.CONS ---
History of Present Illness - Reason for Consult Consult date: 11/01/20 MS changes, h/o Oligodendroglioma - History of Present Illness The patient is a 70-year-old white female with multiple medical issues and a computed past oncologic history. History was obtained from the EMR, as well as the patient's family that were present at the bedside as the patient was unable to provide any coherent history -The patient was initially diagnosed with left frontal oligodendroglioma in 2011 and was treated with resection and then Temodar for approximately a year. She remained with GOPAL until the fall when she had local recurrence. She had repeat resection, followed by radiation concurrent with Temodar and then Temodar alone. She continued on the same to about mid 2019. Surgical/oncologic care for her recurrent cancer was provided at the [facility], under Dr Coates. The patient stopped treatment in mid 2019. It appears that she was having progressive cumulative toxicity. At the time the patient had no evidence of recurrence, and was placed on follow-up with a plan for yearly MRIs. Her last MRI at the [facility] in 04/03 did not show any evidence of recurrence The patient has been having issues with persistent aphasia , generalized slowing, word finding, as well as memory issues. She has been following with neurology locally, Dr. Beauchamp, and is felt to be developing either vascular or Lewy body dementia. The patient was however apparently stable at her baseline to about 2 weeks ago. According to the family at baseline she is still able to carry on a conversation, respond appropriately, walks with a walker and fix before meals. Over the past 2 weeks she has been increasingly weak, with about 5-6 falls, has been more lethargic and less responsive with marked decrease in speech. She was apparently found to have a UTI and started on antibiotics outpatient. However her symptoms especially her mental status did not improve significantly. The pa tient progressed to the point where she was unable to get out of bed by herself. She was therefore brought to the emergency room and admitted for further management. The patient had MRI of the brain done, that showed the prior resection cavity. There was evidence of enhancement starting from the inferior portion of the resection cavity and extending posteriorly into the left temporal lobe as well as anteriorly. Significant vasogenic edema was not described. Recurrent disease was felt to be a definite possibility. Labs did not show significant abnormality other than mildly low potassium. UA was actually normal. EEG was negative for any obvious seizure activity and showed generalized slowing Review of Systems Opinion from EMR, and the patient's family. Patient unable to provide any history or review of systems Constitutional: Reports fatigue, Reports poor appetite, Reports weakness, Reports weight loss Eyes: denies blurred vision, denies pain Ears: deny: decreased hearing, ear discharge, earache, tinnitus Ears, nose, mouth and throat: Denies headache, Denies sore throat Cardiovascular: Reports decreased exercise tolerance Respiratory: Denies cough Gastrointestinal: Denies abdominal pain, Denies diarrhea, Denies nausea, Denies vomiting Genitourinary: Reports mixed incontinence Menstruation: Reports postmenopausal Musculoskeletal: Reports muscle weakness Integumentary: Denies pruritus, Denies rash Neurological: Reports aphasia, Reports change in mentation, Reports change in speech, Reports gait dysfunction, Reports weakness Psychiatric: Reports as per HPI, Reports difficulty concentrating, Reports memory loss Endocrine: Reports fatigue, Reports weight change Hematologic/Lymphatic: Reports as per HPI Past Medical History Past Medical History: Unable to Obtain Additional Past Medical History / Comment(s): Allergic Rhinitis, Gallstones, Brain CA:lemon sized tumor removed (2011). History of Any Multi-Drug Resistant Organisms: None Reported Past Surgical History: Unable to Obtain Additional Past Surgical History / Comment(s): colonoscopy, brain sx, breast biopsy Past Anesthesia/Blood Transfusion Reactions: Unable to Obtain Past Psychological History: Anxiety Smoking Status: Former smoker Past Alcohol Use History: None Reported Past Drug Use History: None Reported Medications and Allergies Home Medications Medication Instructions Recorded Confirmed Type Albuterol Inhaler [Ventolin Hfa 2 puff INHALATION RT-Q4H PRN 10/29/20 10/29/20 History Inhaler] Ascorbic Acid [Vitamin C] 250 mg PO DAILY 10/29/20 10/29/20 History Aspirin 81 mg PO DAILY 10/29/20 10/29/20 History Atorvastatin [Lipitor] 40 mg PO DAILY 10/29/20 10/29/20 History Calcium Carbonate/Vitamin D3 1 tab PO BID 10/29/20 10/29/20 History [Calcium 500 mg Chewable Tablet] Cholecalciferol [Vitamin D3 (25 25 mcg PO DAILY 10/29/20 10/29/20 History Mcg = 1000 Iu)] Escitalopram [Lexapro] 10 mg PO DAILY 10/29/20 10/29/20 History Fluticasone/Salmeterol [Advair 1 puff INHALATION RT-BID 10/29/20 10/29/20 History 250-50 Diskus] Multivitamin [Multivitamins Adult 1 tab PO DAILY 10/29/20 10/29/20 History Gummies] Omeprazole 20 mg PO DAILY 10/29/20 10/29/20 History Phenytoin Sodium Extended 200 mg PO BID 10/29/20 10/29/20 History [Dilantin] Umeclidinium [place] [Incruse 1 puff INHALATION RT-DAILY 10/29/20 10/29/20 History Ellipta] amLODIPine [Norvasc] 5 mg PO DAILY 10/29/20 10/29/20 History levETIRAcetam [Keppra] 500 mg PO BID 10/29/20 10/29/20 History lisinopriL 40 mg PO DAILY 10/29/20 10/29/20 History Allergies Allergy/AdvReac Type Severity Reaction Status Date / Time azithromycin [From Zithromax] Allergy Anaphylaxis Verified 10/29/20 17:46 chlordiazepoxide Allergy Anaphylaxis Verified 10/29/20 17:46 [From Librium] propoxyphene Allergy Anaphylaxis Verified 10/29/20 17:46 [From Darvocet-N] Physical Exam Vitals: Vital Signs Temp Pulse Pulse Resp BP BP Pulse Ox 11/01/20 12:26 84 11/01/20 12:16 84 11/01/20 12:06 97.9 F 73 16 131/82 93 L 11/01/20 09:26 84 11/01/20 09:16 88 11/01/20 08:00 18 11/01/20 05:00 98.4 F 74 18 162/82 93 L 10/31/20 20:22 99.2 F 79 16 139/81 92 L 10/31/20 20:00 16 10/31/20 19:46 78 10/31/20 19:37 78 10/31/20 16:06 80 10/31/20 15:58 80 Intake and Output 11/01/20 11/01/20 11/01/20 06:59 14:59 22:59 Intake Total 550 Output Total 650 Balance 550 -650 Intake: Intake, IV Titration 550 Amount Sodium Chloride 0.9% 1, 550 000 ml @ 50 mls/hr IV . Q20H [facility] Rx#:[id number] Output: Urine 650 Other: Voiding Method Indwelling Catheter - Constitutional General appearance: no acute distress - EENT Eyes: EOMI, PERRLA ENT: hearing grossly normal, normal oropharynx - Neck Neck: no lymphadenopathy Thyroid: bilateral: normal size - Respiratory Respiratory: bilateral: CTA - Cardiovascular Rhythm: regular Heart sounds: normal: S1, S2 - Gastrointestinal General gastrointestinal: normal bowel sounds, soft - Integumentary Integumentary: normal - Neurologic Marked generalized Able to move all extremities but strength only in the 3+-5 range Marked aphasia with significant difficulty with word finding Responses and cognition appear to be markedly slow. However is able to respond to questions and verbal commands partially Neurologic: CNII-XII intact - Musculoskeletal Musculoskeletal: generalized weakness, strength equal bilaterally - Psychiatric Mental status as noted above was able to provide her name as well as main one of the family members Results CBC & Chem 7: 11/01/20 06:46 11/01/20 06:46 Labs: Abnormal Lab Results - Last 24 Hours (Table) 11/01/20 11/01/20 Range/Units 06:46 06:46 Lymphocytes # 0.4 L (1.0-4.8) k/uL Potassium 3.3 L (3.5-5.1) mmol/L Creatinine 0.50 L (0.52-1.04) mg/dL Glucose 106 H (74-99) mg/dL Microbiology - Last 24 Hours (Table) 10/29/20 19:39 Blood Culture - Preliminary Blood No Growth after 48 hours 10/29/20 22:56 Urine Culture - Final Urine,Catheterized Comments: EEG report reviewed MRI - head: report reviewed Assessment and Plan (1) Altered mental status Narrative/Plan: Patient has presented with marked deterioration compared to her baseline mental status and weakness, as described in the HPI. She was diagnosed with UTI as an outpatient and was placed on antibiotics, but urinalysis inpatient was normal. She does not appear to be having any other evidence of infection - Possible etiologies including implications of current MRI were discussed in detail with the patient and family at bedside. They were advised that at this time recurrence could not be ruled out. However that cannot be determined unless her MRI can be compared to the previous MRI that was done in 1/21 and the [facility]. We will try to have radiology obtain this via PACS early next week. - Other possibilities include the effect of recent UTI causing significant deterioration and slow recovery certainly can happen in someone with her clinical history especially related to the brain, and underlying dementia. Elevated drug levels are also within the differential. Keppra and ferritin levels have been ordered by neurology and are pending. - Neurology following - From the oncology standpoint, it was discussed with the family that I would give her a trial of steroids. If she had a marked improvement with the same, then recurrent malignancy would become more likely. If she does not show any improvement in the next 1-2 days then this can be stopped without a taper. Current Visit: Yes Status: Acute Code(s): R41.82 - ALTERED MENTAL STATUS, UNSPECIFIED SNOMED Code(s): 732942780 (2) History of brain cancer Narrative/Plan: Diagnostic and therapeutic circumstances as noted in the HPI. As noted above, it was discussed with the family that recurrence is certainly a possibility. However we can determine that more definitively once MRI can be compared to outside MRI. If the patient does respond markedly to steroids and again recurrent malignancy becomes more likely. - Also had a discussion about treatment goals with the family. They were a dvised that core type of malignancy is actually characterized by repeated recurrences even if there is a good response to treatment. Typically with repeated recurrences interval stent to grow shorter. The patient had stopped Temodar in mid 2019 due to progressive side effects. The family stated that the patient had apparently stated that if the were to recur, she would likely not offer for any more active treatment. Therefore it is more likely that they will pursue a palliative type approach if indeed recurrence is confirmed Current Visit: Yes Status: Acute Code(s): Z85.841 - PERSONAL HISTORY OF ILDA GNANT NEOPLASM OF BRAIN SNOMED Code(s): 726260472
[2020-11-01] MEDS: DEXAMETHASONE SOD PHOSPHATE 4 MG/ML 1 ML VIAL IV SCH (16:33)
[2020-11-02] MEDS: DEXAMETHASONE SOD PHOSPHATE 4 MG/ML 1 ML VIAL IV SCH ×4 (01:09→23:16)
[2020-11-02 06:20] LABS: Basophils % (A) 0 %; Eosinophils # (A) 0.2 k/uL (0-0.7); Eosinophils % (A) 4 %; HCT 38.8 % (34.0-46.0); HGB 13.5 gm/dL (11.4-16.0); Lymphocytes # (A) 0.3 k/uL (1.0-4.8); Lymphocytes % (A) 6 %; MCH 32.4 pg (25.0-35.0); MCHC 34.8 g/dL (31.0-37.0); MCV 93.1 fL (80.0-100.0); Mean Platelet Volume 7.9; Monocytes # (A) 0.2 k/uL (0-1.0); Monocytes % (A) 5 %; Neutrophils # (A) 4.3 k/uL (1.3-7.7); Neutrophils % (A) 84 %; Platelet Count 180 k/uL (150-450); RBC 4.16 m/uL (3.80-5.40); RDW 14.5 % (11.5-15.5); WBC 5.1 k/uL (3.8-10.6)
[2020-11-02] MEDS: HEPARIN SODIUM,PORCINE/PF 5,000 UNIT/0.5 ML SYRINGE SQ SCH ×2 (07:28→23:15)
[2020-11-02] MEDS: SODIUM CHLORIDE 0.9% 1,000 ML IV SCH ×2 (07:30→23:15)
[2020-11-02] MEDS: ASCORBIC ACID 500 MG TAB PO SCH (07:30)
[2020-11-02] MEDS: PHENYTOIN SODIUM EXTENDED 100 MG CAP PO SCH ×2 (07:31→23:16)
[2020-11-02] MEDS: amLODIPine 5 MG TAB PO SCH (07:31)
[2020-11-02] MEDS: ATORVASTATIN 40 MG TAB PO SCH (07:31)
[2020-11-02] MEDS: MULTIVITAMINS, THERA 1 EACH TAB PO SCH (07:31)
[2020-11-02] MEDS: lisinopriL 20 MG TAB PO SCH (07:31)
[2020-11-02] MEDS: CALCIUM CARB-VIT D 500 MG-5 MCG TAB PO SCH ×2 (07:31→23:15)
[2020-11-02] MEDS: ASPIRIN 81 MG PO SCH (07:31)
[2020-11-02] MEDS: THIAMINE 100 MG TAB PO SCH (07:31)
[2020-11-02] MEDS: PANTOPRAZOLE 40 MG TABLET PO SCH (07:31)
[2020-11-02] MEDS: CHOLECALCIFEROL 25 MCG (1000 IU) TABLET PO SCH (07:31)
[2020-11-02] MEDS: FOLIC ACID 1 MG TAB PO SCH (07:32)
[2020-11-02] MEDS: SYMBICORT 80-4.5 MCG INHALER INHALATION SCH ×2 (08:21→19:30)
[2020-11-02] MEDS: IPRATROPIUM 0.5 MG/2.5 ML NEBU INHALATION SCH ×4 (08:21→19:30)
[2020-11-02 12:29] LABS: African American GFR (CKD) 112.1 (60.0-200.0); Calcium 9.2 mg/dL (8.7-10.3); Magnesium 1.7 mg/dL (1.5-2.4); Non-African American GFR(CKD) 96.7 (60.0-200.0)
--- NOTE | 2020-11-02 12:59 | PN ---
PROGRESS NOTE DATE OF SERVICE: 11/03/2003. HISTORY: This 70-year-old woman is admitted with confusion and change in mental status also had possible UTI. Patient has dementia and patient also has oligodendroglioma grade 3, which is treated in 2011. Patient apparently recurrence in 2018, had surgery and radiation. Currently the MRI showed suspicious recurrence. The patient is started on IV Decadron by Dr. Ospina. Patient is feeling much better after that. Dr. Ospina is planning to review the previous MRI and arrange a comparison by either the Radiology or by Dr. Albarado. No chest pain, no palpitation. PHYSICAL EXAMINATION: Patient is confused. Pulse 76, blood pressure 112/76, respirations 18, temperature 97.7, pulse ox 98 percent room air. HEENT: S1, S2 muffled. RESPIRATORY SYSTEM: Breath sounds diminished at the bases. ABDOMEN: Soft. NERVOUS SYSTEM: Diffusely weak. LABS: CBC within normal limits. ASSESSMENT: 1. Change in mental status acute metabolic encephalopathy multifactorial. 2. Acute urinary tract infection with sepsis present on admission. 3. Possible recurrence or residual effect of oligodendroglioma stage III on MRI with a right frontal extension possibly. 4. Hypokalemia. 5. History of brain lesion removal. 6. History of acute seizure disorder. 7. History of gait dysfunction. 8. Allergic rhinitis. 9. History of gallstones. 10.Hypertension. 11.History of COPD. 12.Hyperlipidemia. 13.Obesity with body mass of 34.7. 14.Full code. RECOMMENDATIONS: Continue current management and symptomatic treatment. Lytes are not available at this time. We will continue the steroids by Dr. Ospina's recommendation, as mentioned earlier. We will follow up with the comparison with previous MRI. Closely follow with Neurology. Continue the antibiotics. The cultures are negative so far. Further recommendations to follow. MMODL / IJN: [id number] /
--- NOTE | 2020-11-02 14:18 | P.PN ---
Subjective Progress Note Date: 11/02/20 No sitting up in the chair. She appeared to be more alert. Responses were overall quicker. While word finding was still difficult, she was able to talk in longer sentences. Family were at the bedside. While they agreed that the patient had improved, she was still not close to her baseline about 2 weeks ago. Objective - Vital Signs Vital signs: Vital Signs Temp 97.7 F 11/02/20 11:38 Pulse 76 11/02/20 12:27 Resp 18 11/02/20 11:38 BP 112/76 11/02/20 11:38 Pulse Ox 93 L 11/02/20 11:38 Intake & Output 11/01/20 11/02/20 11/02/20 18:59 06:59 18:59 Intake Total 600 990 Output Total 925 1000 100 Balance -325 -10 -100 Intake: IV 600 450 Sodium Chloride 0.9% 1, 600 450 000 ml @ 50 mls/hr IV . Q20H [facility] Rx#:[id number] Oral 540 Output: Urine 925 1000 100 Straight 100 Other: Voiding Method Indwelling Catheter Indwelling Catheter Indwelling Catheter # Voids 0 # Bowel Movements 0 1 - Constitutional General appearance: Present: no acute distress - EENT Eyes: Present: EOMI ENT: Present: hearing grossly normal, normal oropharynx - Respiratory Respiratory: bilateral: CTA - Cardiovascular Rhythm: regular Heart sounds: normal: S1, S2 - Gastrointestinal General gastrointestinal: Present: normal bowel sounds, soft - Integumentary Integumentary: Present: normal - Neurologic Neurologic Comment(s): Mental status, responsiveness, and speech issues as noted above Neurologic: Present: CNII-XII intact - Musculoskeletal Musculoskeletal: Present: generalized weakness - Labs CBC & Chem 7: 11/02/20 05:36 11/02/20 05:36 Labs: Abnormal Lab Results - Last 24 Hours (Table) 11/02/20 11/02/20 Range/Units 05:36 05:36 Lymphocytes # 0.3 L (1.0-4.8) k/uL Creatinine 0.5 L (0.6-1.5) mg/dL BUN/Creatinine Ratio 22.00 H (12.00-20.00) Ratio Glucose 125 H (70-110) mg/dL Microbiology - Last 24 Hours (Table) 10/29/20 19:39 Blood Culture - Preliminary Blood No Growth after 72 hours Assessment and Plan (1) Altered mental status Narrative/Plan: The patient definitely appears to be improved today. However she is still not back to her baseline from about 2 weeks ago according to the family. Case was discussed in detail with the admitting service and with the family. At this time the degree of improvement is not conclusive as to whether it is due to steroids, or improvement post treatment of infections/dehydration. - Continue steroids for now. It was discussed with them that they will be discontinued if her evaluation does not show any progression of malignancy. Current Visit: Yes Status: Acute Code(s): R41.82 - ALTERED MENTAL STATUS, UNSPECIFIED SNOMED Code(s): 359023541 (2) History of brain cancer Narrative/Plan: The patient's family had a report from her MRI from 04/02. This had mentioned presence of enhancement posterior medial and anterior to the resection cavity. Therefore it is definitely possible that the findings noted on the MRI done at this hospital could represent chronic changes. We will need comparison with the MRI from 04/03 for a definite conclusion. I will discuss the same with radiology tomorrow to see if they can obtain the images from the [facility] through PACS. - It was discussed with the family that if there appears to be no progression of her malignancy, steroids can be discontinued. There does appear to be progression and the patient will be continued on steroids for symptomatic treatment. As noted previously have indicated that we will likely not pursue active treatment of malignancy in case of recurrence/progression. They were advised that typically in this situation the patient may need to continue at the lowest possible dose of Decadron to ensure symptom control. - The plan discussed in detail with the admitting service Current Visit: Yes Status: Acute Code(s): Z85.841 - PERSONAL HISTORY OF MALIGNANT NEOPLASM OF BRAIN SNOMED Code(s): 710893122
--- NOTE | 2020-11-02 22:40 | CT ---
EXAMINATION TYPE: CT brain wo con DATE OF EXAM: 11/02/2020 COMPARISON: None HISTORY: fall CT DLP: 1012.7 mGycm Automated exposure control for dose reduction was used. There is old left frontal craniotomy defect. There is large area of fluid density in the left frontal lobe region consistent with old encephalomalacia. There is no mass effect nor midline shift. There i s no sign of intracranial hemorrhage. There is mild enlargement of the ventricles. There is some cere bral cortical atrophy. Skull base is intact. IMPRESSION: Old left frontal lobe encephalomalacia. Cerebral atrophy. No acute intracranial abnormality. Right fr ontal lobe white matter hypodensity consistent with chronic ischemia.
[2020-11-03 05:59] LABS: Basophils % (A) 0 %; Eosinophils # (A) 0.1 k/uL (0-0.7); Eosinophils % (A) 3 %; HGB 12.7 gm/dL (11.4-16.0); Lymphocytes # (A) 0.3 k/uL (1.0-4.8); Lymphocytes % (A) 7 %; MCH 31.6 pg (25.0-35.0); MCHC 33.4 g/dL (31.0-37.0); MCV 94.4 fL (80.0-100.0); Mean Platelet Volume 7.9; Monocytes # (A) 0.2 k/uL (0-1.0); Monocytes % (A) 5 %; Neutrophils # (A) 3.5 k/uL (1.3-7.7); Neutrophils % (A) 84 %; Platelet Count 207 k/uL (150-450); RBC 4.02 m/uL (3.80-5.40); WBC 4.2 k/uL (3.8-10.6)
[2020-11-03] MEDS: HEPARIN SODIUM,PORCINE/PF 5,000 UNIT/0.5 ML SYRINGE SQ SCH ×2 (08:38→20:33)
[2020-11-03] MEDS: ASPIRIN 81 MG PO SCH (08:38)
[2020-11-03] MEDS: lisinopriL 20 MG TAB PO SCH (08:38)
[2020-11-03] MEDS: PHENYTOIN SODIUM EXTENDED 100 MG CAP PO SCH ×2 (08:38→20:34)
[2020-11-03] MEDS: PANTOPRAZOLE 40 MG TABLET PO SCH (08:38)
[2020-11-03] MEDS: CHOLECALCIFEROL 25 MCG (1000 IU) TABLET PO SCH (08:38)
[2020-11-03] MEDS: ASCORBIC ACID 500 MG TAB PO SCH (08:39)
[2020-11-03] MEDS: amLODIPine 5 MG TAB PO SCH (08:39)
[2020-11-03] MEDS: ATORVASTATIN 40 MG TAB PO SCH (08:39)
[2020-11-03] MEDS: MULTIVITAMINS, THERA 1 EACH TAB PO SCH (08:42)
[2020-11-03] MEDS: CALCIUM CARB-VIT D 500 MG-5 MCG TAB PO SCH ×2 (08:43→20:33)
[2020-11-03] MEDS: DEXAMETHASONE SOD PHOSPHATE 4 MG/ML 1 ML VIAL IV SCH (08:43)
[2020-11-03] MEDS: IPRATROPIUM 0.5 MG/2.5 ML NEBU INHALATION SCH ×4 (09:01→19:39)
[2020-11-03] MEDS: SYMBICORT 80-4.5 MCG INHALER INHALATION SCH ×2 (09:01→19:39)
[2020-11-03] MEDS: FOLIC ACID 1 MG TAB PO SCH (11:33)
[2020-11-03 12:35] LABS: African American GFR (CKD) 105.5 (60.0-200.0); Anion Gap 11.2 mmol/L (4.00-12.00); Calcium 9.3 mg/dL (8.7-10.3); Carbon Dioxide 24.8 mmol/L (21.6-31.8); Non-African American GFR(CKD) 91.1 (60.0-200.0)
--- NOTE | 2020-11-03 15:16 | P.PN ---
Subjective Progress Note Date: 11/03/20 Principal diagnosis: Altered Mental status In follow-up today patient continues to have severe difficulty finding her words but, you can tell that she knows that she is not same the right things. Seems more alert today. Objective - Vital Signs Vital signs: Vital Signs Temp 98.3 F 11/03/20 14:10 Pulse 75 11/03/20 14:10 Resp 18 11/03/20 14:10 BP 131/76 11/03/20 14:10 Pulse Ox 92 L 11/03/20 14:10 Intake & Output 11/02/20 11/03/20 11/03/20 18:59 06:59 18:59 Intake Total 600 600 Output Total 100 Balance 500 600 Intake: IV 600 Sodium Chloride 0.9% 1, 600 000 ml @ 50 mls/hr IV . Q20H [facility] Rx#:[id number] Intake, IV Titration 600 Amount Sodium Chloride 0.9% 1, 600 000 ml @ 50 mls/hr IV . Q20H [facility] Rx#:[id number] Output: Urine 100 Straight 100 Other: Voiding Method Indwelling Catheter Toilet Toilet Diaper Diaper # Voids 1 # Bowel Movements 1 - Constitutional General appearance: Present: average body habitus, cooperative, no acute distress - EENT Eyes: Present: anicteric sclerae, edentulous ENT: Present: hearing grossly normal - Respiratory Respiratory: bilateral: CTA - Cardiovascular Rhythm: regular Heart sounds: normal: S1, S2 Abnormal Heart Sounds: Absent: systolic murmur, diastolic murmur, rub, S3 Gallop, S4 Gallop, click, other - Musculoskeletal Musculoskeletal: Present: generalized weakness - Labs CBC & Chem 7: 11/03/20 04:58 11/03/20 04:58 Labs: Abnormal Lab Results - Last 24 Hours (Table) 11/03/20 11/03/20 Range/Units 04:58 04:58 Lymphocytes # 0.3 L (1.0-4.8) k/uL Sodium 146 H (135-145) mmol/L Chloride 110 H (96-109) mmol/L BUN/Creatinine Ratio 25.00 H (12.00-20.00) Ratio Glucose 118 H (70-110) mg/dL Microbiology - Last 24 Hours (Table) 10/29/20 19:39 Blood Culture - Preliminary Blood No Growth after 96 hours - Imaging and Cardiology MRI - head: report reviewed Assessment and Plan (1) Altered mental status Current Visit: Yes Status: Acute Priority: High Code(s): R41.82 - ALTERED MENTAL STATUS, UNSPECIFIED SNOMED Code(s): 276009638 (2) History of brain cancer Current Visit: Yes Status: Chronic Priority: High Code(s): Z85.841 - PERSONAL HISTORY OF MALIGNANT NEOPLASM OF BRAIN SNOMED Code(s): 666041168 Plan: Patient's mental status seems slightly improved with treatment of UTI and steroids started. She seems to understand that what she saying isn't correct. Review the case with Radiation Oncologist. Unfortunately, they are unable to access images from [facility] in [place] via our EMR/Radiology system. So, it is difficult to say for certain, if patient has recurrent disease or if her change in mental status is related to UTI and/or possible progressive dementia. Agree with antibiotics and patient to complete antibiotic course for her UTI. We will adjust steroids and taper slowly. Patient will follow-up as directed by [facility] in [place].
[2020-11-03] MEDS: dexAMETHasone 4 MG TAB PO SCH (16:13)
--- NOTE | 2020-11-03 16:31 | P.PN ---
Subjective Progress Note Date: 11/03/20 This is a 70-year-old female who was recently admitted with increased confusion along with possible acute urinary tract infection with sepsis, present on admission and is being closely monitored. Patient continues on IV antibiotics and urine culture showing no growth. Patient was recently treated outpatient for UTI. Patient had MRI of the brain done showing residual or recurrent active neoplasm is strongly suspected extending from the left posteroinferior margin of the resection cavity through the inferior left frontal lobe into the superior temporal region. Right frontal lobe extension also noted. Infiltrative appearance noted. Correlation with old outside MRI imaging may be beneficial to assess for change. No reports of chest pain or palpitations. Denies any shortness of breath. Patient up with multiple assistance and continued unsteadiness and gait dysfunction. Will repeat am labs. 11/03/2020 Patient is seen in follow-up this morning and continues to have difficulty in expressing what she wants to say but has shown improvement. Discussed with oncology and they are unable to access the MRI to compare her previous MRI with the one done the other day and patient will need close outpatient follow-up with the [facility]. Patient is continued on Decadron steroids along with IV antibiotics in the form of ceftriaxone and will continue. Family would like her to go to [facility] for rehab and they are able to accommodate with the bed tomorrow. Will discuss with oncology about steroid dosing and tapering and close outpatient follow-up. Review of systems: unable to obtain as patient continues to be somewhat confused Active Medications Acetaminophen (Acetaminophen Tab 325 Mg Tab) 650 mg PO Q4HR PRN PRN Reason: Fever and/ or Pain Last Admin: 10/29/20 18:13 Dose: 650 mg Documented by: Albuterol Sulfate (Albuterol Nebulized 2.5 Mg/3 Ml) 2.5 mg INHALATION RT-Q4H PRN PRN Reason: Shortness Of Breath Amlodipine Besylate (Amlodipine 5 Mg Tab) 5 mg PO DAILY [facility] Last Admin: 11/03/20 08:39 Dose: 5 mg Documented by: Ascorbic Acid (Ascorbic Acid 500 Mg Tab) 250 mg PO DAILY [facility] Last Admin: 11/03/20 08:39 Dose: 250 mg Documented by: Aspirin (Aspirin 81 Mg) 81 mg PO DAILY [facility] Last Admin: 11/03/20 08:38 Dose: 81 mg Documented by: Atorvastatin Calcium (Atorvastatin 40 Mg Tab) 40 mg PO DAILY [facility] Last Admin: 11/03/20 08:39 Dose: 40 mg Documented by: Budesonide/Formoterol Fumarate (Symbicort 80-4.5 Mcg Inhaler) 2 puff INHALATION RT-BID [facility] Last Admin: 11/03/20 09:01 Dose: 2 puff Documented by: Calcium Carbonate (Calcium Carb-Vit D 500 Mg-5 Mcg Tab) 1 each PO BID [facility] Last Admin: 11/03/20 08:43 Dose: 1 each Documented by: Cholecalciferol (Cholecalciferol 25 Mcg (1000 Iu) Tablet) 25 mcg PO DAILY [facility] Last Admin: 11/03/20 08:38 Dose: 25 mcg Documented by: Dexamethasone (Dexamethasone 4 Mg Tab) 4 mg PO Q8H [facility] Last Admin: 11/03/20 16:13 Dose: 4 mg Documented by: Folic Acid (Folic Acid 1 Mg Tab) 1 mg PO DAILY@1200 [facility] Last Admin: 11/03/20 11:33 Dose: 1 mg Documented by: Heparin Sodium (Porcine) (Heparin Sodium,Porcine/Pf 5,000 Unit/0.5 Ml Syringe) 5,000 unit SQ Q12HR [facility] Last Admin: 11/03/20 08:38 Dose: 5,000 unit Documented by: Ceftriaxone Sodium 1 gm/ (Sodium Chloride) 50 mls @ 100 mls/hr IVPB Q24HR [facility] Last Admin: 11/03/20 08:37 Dose: 100 mls/hr Documented by: Sodium Chloride (Saline 0.9%) 1,000 mls @ 50 mls/hr IV .Q20H [facility] Last Admin: 11/02/20 23:15 Dose: 50 mls/hr Documented by: Ipratropium [place] (Ipratropium 0.5 Mg/2.5 Ml Nebu) 0.5 mg INHALATION RT-QID [facility] Last Admin: 11/03/20 16:17 Dose: 0.5 mg Documented by: Levetiracetam (Levetiracetam 750 Mg Tab) 1,500 mg PO Q12HR [facility] Last Admin: 11/03/20 08:38 Dose: 1,500 mg Documented by: Lisinopril (Lisinopril 20 Mg Tab) 40 mg PO DAILY [facility] Last Admin: 11/03/20 08:38 Dose: 40 mg Documented by: Miscellaneous Information (Magnesium Replacement Protocol 1 Each Misc) 1 each MISCELLANE DAILY PRN; Protocol PRN Reason: Per Protocol Miscellaneous Information (Potassium Replacement Protocol 1 Each Misc) 1 each MISCELLANE DAILY PRN; Protocol PRN Reason: Per Protocol Multivitamins (Multivitamins, Thera 1 Each Tab) 1 each PO DAILY [facility] Last Admin: 11/03/20 08:42 Dose: 1 each Documented by: Pantoprazole Sodium (Pantoprazole 40 Mg Tablet) 40 mg PO AC-BRKFST [facility] Last Admin: 11/03/20 08:38 Dose: 40 mg Documented by: Phenytoin Sodium (Phenytoin Sodium Extended 100 Mg Cap) 200 mg PO BID [facility] Last Admin: 11/03/20 08:38 Dose: 200 mg Documented by: Thiamine HCl (Thiamine 100 Mg Tab) 100 mg PO DAILY@1200 [facility] Last Admin: 11/02/20 07:31 Dose: 100 mg Documented by: Objective - Vital Signs Vital signs: Vital Signs Temp 97.5 F L 11/03/20 04:13 Pulse 72 11/03/20 12:04 Resp 16 11/03/20 04:13 BP 129/81 11/03/20 04:13 Pulse Ox 95 11/03/20 04:13 Intake & Output 11/02/20 11/03/20 11/03/20 18:59 06:59 18:59 Intake Total 600 600 Output Total 100 Balance 500 600 Intake: IV 600 Sodium Chloride 0.9% 1, 600 000 ml @ 50 mls/hr IV . Q20H [facility] Rx#:[id number] Intake, IV Titration 600 Amount Sodium Chloride 0.9% 1, 600 000 ml @ 50 mls/hr IV . Q20H [facility] Rx#:[id number] Output: Urine 100 Straight 100 Other: Voiding Method Indwelling Catheter Toilet Toilet Diaper Diaper # Voids 1 # Bowel Movements 1 - Exam Gen: This is a 70-year-old female lethargic but arousable. Alert and oriented x 2. Intermittently Confused and unable to express her words appropriately. HEENT: Head is atraumatic, normocephalic. Pupils equal, round. Sclerae is anicteric. NECK: Supple. No JVD. No lymphadenopathy. No thyromegaly. LUNGS: Diminished breath sounds noted with some scattered rhonchi noted. No intercostal retractions. HEART: s1, s2 muffled ABDOMEN: Soft. obese. Bowel sounds are present. No masses. No tenderness. EXTREMITIES: No pedal edema. No calf tenderness. NEUROLOGICAL: Patient is awake, alert and oriented x1-2. diffusely weak - Labs CBC & Chem 7: 11/03/20 04:58 11/03/20 04:58 Labs: Abnormal Lab Results - Last 24 Hours (Table) 11/03/20 11/03/20 Range/Units 04:58 04:58 Lymphocytes # 0.3 L (1.0-4.8) k/uL Sodium 146 H (135-145) mmol/L Chloride 110 H (96-109) mmol/L BUN/Creatinine Ratio 25.00 H (12.00-20.00) Ratio Glucose 118 H (70-110) mg/dL Microbiology - Last 24 Hours (Table) 10/29/20 19:39 Blood Culture - Preliminary Blood No Growth after 96 hours Assessment and Plan Assessment: change in mental status, acute metabolic encephalopathy, multifactorial acute urinary tract infection with sepsis, present on admission 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 She is maintained on IV antibiotics and will continue and transitioned to oral antibiotics once discharged and will discuss with oncology about steroid taper and outpatient follow-up with the [facility]. Unfortunately they are able to access the MRI done previously to compare with most recent MRI. Neurology evaluated the patient recommending to continue with further workup with her neurologist Dr. Beauchamp in the outpatient setting. Social work following and working on accepting facility for continued rehab. Plans are to discharge to [facility] per family and able to accommodate a bed on 11/04/2020. Due to multiple complex medical issues, prognosis remains guarded. Possible discharge in 24 hours.
[2020-11-04] MEDS: dexAMETHasone 4 MG TAB PO SCH ×2 (00:43→08:07)
[2020-11-04] MEDS: CALCIUM CARB-VIT D 500 MG-5 MCG TAB PO SCH (08:07)
[2020-11-04] MEDS: HEPARIN SODIUM,PORCINE/PF 5,000 UNIT/0.5 ML SYRINGE SQ SCH (08:07)
[2020-11-04] MEDS: ATORVASTATIN 40 MG TAB PO SCH (08:07)
[2020-11-04] MEDS: PANTOPRAZOLE 40 MG TABLET PO SCH (08:08)
[2020-11-04] MEDS: IPRATROPIUM 0.5 MG/2.5 ML NEBU INHALATION SCH ×2 (08:08→12:21)
[2020-11-04] MEDS: CHOLECALCIFEROL 25 MCG (1000 IU) TABLET PO SCH (08:08)
[2020-11-04] MEDS: SYMBICORT 80-4.5 MCG INHALER INHALATION SCH (08:08)
[2020-11-04] MEDS: ASPIRIN 81 MG PO SCH (08:08)
[2020-11-04] MEDS: lisinopriL 20 MG TAB PO SCH (08:08)
[2020-11-04] MEDS: ASCORBIC ACID 500 MG TAB PO SCH (08:08)
[2020-11-04] MEDS: amLODIPine 5 MG TAB PO SCH (08:08)
[2020-11-04] MEDS: MULTIVITAMINS, THERA 1 EACH TAB PO SCH (08:08)
[2020-11-04] MEDS: PHENYTOIN SODIUM EXTENDED 100 MG CAP PO SCH (08:09)
--- NOTE | 2020-11-04 11:58 | P.DS ---
Providers Date of admission: 10/29/20 15:26 Expected date of discharge: 11/04/20 Attending physician: Benjamín Silva MD Consults: 10/29/20 15:26 Consult Physician Urgent Consulting Provider: Angel Luis Mckee Consult Reason/Comments: Generalized weakness, altered mental status, history of brain cancer Do you want consulting provider notified?: Yes 11/01/20 10:30 Consult Physician Routine Consulting Provider: Akin Ospina Consult Reason/Comments: malignancy Do you want consulting provider notified?: Yes Primary care physician: Stated None Hospital Course: Final diagnosis change in mental status, acute metabolic encephalopathy, multifactorial acute urinary tract infection with sepsis, present on admission 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 Patient will follow- up with primary care provider in the outpatient setting upon discharge. Patient is also to follow-up with the [facility] in [place] in the next week and will need MRI disc for follow-up appointment. Patient is to continue with oral antibiotics in the form of Ceftin 500 mg twice daily for the next 5 days to complete the course and then may discontinue. He is to continue on dexamethasone taper per oncology recommendations. Total time taken is greater than 35 minutes. Hospital course This is a 70-year-old female who was recently admitted with increased confusion along with possible acute urinary tract infection with sepsis, present on admission and is being closely monitored. Patient continues on IV antibiotics and urine culture showing no growth. Patient was recently treated outpatient for UTI. Patient had MRI of the brain done showing residual or recurrent active neoplasm is strongly suspected extending from the left posteroinferior margin of the resection cavity through the inferior left frontal lobe into the superior temporal region. Right frontal lobe extension also noted. Infiltrative appearance noted. Correlation with old outside MRI imaging may be beneficial to assess for change. No reports of chest pain or palpitations. Denies any shortness of breath. Patient up with multiple assistance and continued unsteadiness and gait dysfunction. Will repeat am labs. 11/03/2020 Patient is seen in follow-up this morning and continues to have difficulty in expressing what she wants to say but has shown improvement. Discussed with oncology and they are unable to access the MRI to compare her previous MRI with the one done the other day and patient will need close outpatient follow-up with the [facility]. Patient is continued on Decadron steroids along with IV antibiotics in the form of ceftriaxone and will continue. Family would like her to go to [facility] for rehab and they are able to accommodate with the bed tomorrow. Will discuss with oncology about steroid dosing and tapering and close outpatient follow-up. 11/04/2020 Patient is seen in follow-up this morning much more awake and able to express herself more freely without hesitancy and states she is feeling much better. Patient continues on dexamethasone taper and will continue with 4 mg twice daily until follow-up with oncologist out of [facility]. Patient will need follow-up in one week with them. Patient also continues on oral antibiotics in the form of Ceftin 500 mg twice daily for the next 5 days and then may discontinue. She continues to be weak and will be going to [facility] for some continued PT/OT therapy. Currently no reports of chest pain, shortness of breath, or palpitations. Patient is afebrile. No reports of nausea or vomiting and patient is tolerating diet. Patient will be going to [facility] today. On exam vital signs are stable. Cardio S1, S2 are muffled. Respiratory system shows diminished breath sounds at the bases with no wheezing or rhonchi noted. Abdomen is soft and obese, and nontender. Nervous system shows diffuse weakness. Please refer to medication reconciliation sheet for a list of medications. Patient Condition at Discharge: Stable Plan - Discharge Summary Discharge Rx Participant: No New Discharge Prescriptions: New Cefuroxime Axetil [Ceftin] 500 mg PO BID 5 Days #10 tab levETIRAcetam [Keppra] 1,500 mg PO Q12HR tab Acetaminophen Tab [Tylenol] 650 mg PO Q4HR PRN tab PRN Reason: Fever And/ Or Pain Thiamine [Vitamin B-1] 100 mg PO DAILY@1200 tab Folic Acid 1 mg PO DAILY@1200 tab Dexamethasone [Decadron] 4 mg PO BID #60 tablet Continue Aspirin 81 mg PO DAILY Ascorbic Acid [Vitamin C] 250 mg PO DAILY amLODIPine [Norvasc] 5 mg PO DAILY Fluticasone/Salmeterol [Advair 250-50 Diskus] 1 puff INHALATION RT-BID Atorvastatin [Lipitor] 40 mg PO DAILY Albuterol Inhaler [Ventolin Hfa Inhaler] 2 puff INHALATION RT-Q4H PRN PRN Reason: Shortness Of Breath Multivitamin [Multivitamins Adult Gummies] 1 tab PO DAILY Calcium Carbonate/Vitamin D3 [Calcium 500 mg Chewable Tablet] 1 tab PO BID Phenytoin Sodium Extended [Dilantin] 200 mg PO BID Omeprazole 20 mg PO DAILY Cholecalciferol [Vitamin D3 (25 Mcg = 1000 Iu)] 25 mcg PO DAILY lisinopriL 40 mg PO DAILY Umeclidinium [place] [Incruse Ellipta] 1 puff INHALATION RT-DAILY Discontinued levETIRAcetam [Keppra] 500 mg PO BID Escitalopram [Lexapro] 10 mg PO DAILY Discharge Medication List Albuterol Inhaler [Ventolin Hfa Inhaler] 2 puff INHALATION RT-Q4H PRN 10/29/20 [History] Ascorbic Acid [Vitamin C] 250 mg PO DAILY 10/29/20 [History] Aspirin 81 mg PO DAILY 10/29/20 [History] Atorvastatin [Lipitor] 40 mg PO DAILY 10/29/20 [History] Calcium Carbonate/Vitamin D3 [Calcium 500 mg Chewable Tablet] 1 tab PO BID 10/29/20 [History] Cholecalciferol [Vitamin D3 (25 Mcg = 1000 Iu)] 25 mcg PO DAILY 10/29/20 [History] Fluticasone/Salmeterol [Advair 250-50 Diskus] 1 puff INHALATION RT-BID 10/29/20 [History] Multivitamin [Multivitamins Adult Gummies] 1 tab PO DAILY 10/29/20 [History] Omeprazole 20 mg PO DAILY 10/29/20 [History] Phenytoin Sodium Extended [Dilantin] 200 mg PO BID 10/29/20 [History] Umeclidinium [place] [Incruse Ellipta] 1 puff INHALATION RT-DAILY 10/29/20 [History] amLODIPine [Norvasc] 5 mg PO DAILY 10/29/20 [History] lisinopriL 40 mg PO DAILY 10/29/20 [History] Acetaminophen Tab [Tylenol] 650 mg PO Q4HR PRN tab 11/04/20 [Rx] Cefuroxime Axetil [Ceftin] 500 mg PO BID 5 Days #10 tab 11/04/20 [Rx] Dexamethasone [Decadron] 4 mg PO BID #60 tablet 11/04/20 [Rx] Folic Acid 1 mg PO DAILY@1200 tab 11/04/20 [Rx] Thiamine [Vitamin B-1] 100 mg PO DAILY@1200 tab 11/04/20 [Rx] levETIRAcetam [Keppra] 1,500 mg PO Q12HR tab 11/04/20 [Rx] Follow up Appointment(s)/Referral(s): None,Stated [Primary Care Provider] - 1-2 days Activity/Diet/Wound Care/Special Instructions: Steroid order in. Not sent to pharmacy as pt going to a facility. She needs to stay on 4mg BID of dexamethasone until seen by Onc in [place] and her brain imaging is compared. MRI disc of brain requested. Needs to go with pt. Patient is going to [facility] Activity as tolerated Continue his medications as prescribed Continue with steroids as prescribed per oncology Patient will need to follow-up with [facility] in [place] in the next 1-2 weeks Continue with antibiotics for the next 5 days and then may discontinue Patient will need a disc on MRI that was done here to go with her and will need to bring with follow-up appointment with [facility] in [place] Continue with regular diet Continue with ensures enlive twice a day with meals Discharge Disposition: TRANSFER TO SNF/ECF
[2020-11-04 12:14] VITALS: BP 132/78; PULSE 79; RESP 18; TEMP 98.1
[2020-11-04] MEDS: THIAMINE 100 MG TAB PO SCH (12:21)
[2020-11-04] MEDS: FOLIC ACID 1 MG TAB PO SCH (12:21)
--- NOTE | 2020-11-04 17:16 | P.PN ---
Subjective Progress Note Date: 11/04/20 Principal diagnosis: Altered Mental status In follow-up today patient continues to have severe difficulty finding her words but, you can tell that she knows that she is not saying the right things. Her level of alertness is stable today. Son is at bedside and confirms that pt is better then on admit but not back to baseline Objective - Vital Signs Vital signs: Vital Signs Temp 98.1 F 11/04/20 12:14 Pulse 79 11/04/20 12:14 Resp 18 11/04/20 12:14 BP 132/78 11/04/20 12:14 Pulse Ox 93 L 11/04/20 12:14 Intake & Output 11/03/20 11/04/20 11/04/20 18:59 06:59 18:59 Intake Total 650 200 Balance 650 200 Weight 97.522 kg Intake: IV 600 200 Sodium Chloride 0.9% 1, 600 200 000 ml @ 50 mls/hr IV . Q20H [facility] Rx#:[id number] Intake, IV Titration 50 Amount cefTRIAXone 1 gm In 50 Sodium Chloride 0.9% 50 ml @ 100 mls/hr IVPB Q24HR [facility] Rx#:[id number] Other: Voiding Method Toilet Toilet Bedside Commode Diaper Bedside Commode Diaper Diaper # Voids 4 - Constitutional General appearance: Present: average body habitus, cooperative, no acute distress - EENT Eyes: Present: anicteric sclerae, EOMI ENT: Present: hearing grossly normal - Respiratory Respiratory: bilateral: CTA - Cardiovascular Rhythm: regular Heart sounds: normal: S1, S2 Abnormal Heart Sounds: Absent: systolic murmur, diastolic murmur, rub, S3 Gallop, S4 Gallop, click, other - Peripheral edema leg Peripheral Edema: bilateral: Trace - Gastrointestinal General gastrointestinal: Present: normal bowel sounds, soft - Integumentary Integumentary: Present: pale - Musculoskeletal Musculoskeletal: Present: generalized weakness - Psychiatric Psychiatric Comment(s): alert, not able to respond with right words but, she will nod her head appropriately to questions - Labs CBC & Chem 7: 11/03/20 04:58 11/03/20 04:58 Labs: Microbiology - Last 24 Hours (Table) 10/29/20 19:39 Blood Culture - Preliminary Blood No Growth after 120 hours Assessment and Plan (1) Altered mental status Narrative/Plan: Improved slightly post abx for UTI Status: Acute Priority: High Code(s): R41.82 - ALTERED MENTAL STATUS, UNSPECIFIED SNOMED Code(s): 127449864 (2) History of brain cancer Status: Chronic Priority: High Code(s): Z85.841 - PERSONAL HISTORY OF MALIGNANT NEOPLASM OF BRAIN SNOMED Code(s): 828896732 Plan: Patient's mental status seems slightly improved with treatment of UTI and st eroids-changed to oral yesterday with no significant changes. Unfortunately, uable to access images from [facility] in [place] via our EMR/Radiology system. So, it is difficult to say for certain, if patient has recurrent disease or if her change in mental status is related to UTI and/or possible progressive dementia or even a radiation necrosis. Agree with antibiotics and patient to complete antibiotic course for her UTI. We will cont steroids at 4mg BID since we do not have confirmation of what is happening in the brain. Have requested to speak to [facility] Doctor and Neurologist to see who can review and give some answers. Will contact son with update. He agrees with the plan. No f/u planned while pt in facility. Time with Patient: Greater than 30
== END 2020-11-04 14:22 | DRG 871 ==
LOC: EC 13:03 → 5NMEDONC 15:26
PROVIDERS: ADMIT Internal Medicine; ATTEND Internal Medicine
DX: A41.9 Sepsis, unspecified organism (principal); G93.41 Metabolic encephalopathy; C71.9 Malignant neoplasm of brain, unspecified; E87.0 Hyperosmolality and hypernatremia; N39.0 Urinary tract infection, site not specified; E66.9 Obesity, unspecified; E78.5 Hyperlipidemia, unspecified; E86.0 Dehydration; E87.6 Hypokalemia; F02.80 Dementia in other diseases classified elsewhere, unspecified severity, without behavioral disturbance, psychotic disturbance, mood disturbance, and anxiety; G31.83 Neurocognitive disorder with Lewy bodies; R29.6 Repeated falls; Z63.8 Other specified problems related to primary support group; Z68.34 Body mass index [BMI] 34.0-34.9, adult; Z79.82 Long term (current) use of aspirin; Z79.899 Other long term (current) drug therapy; Z85.841 Personal history of malignant neoplasm of brain; Z87.440 Personal history of urinary (tract) infections; Z87.891 Personal history of nicotine dependence; Z92.21 Personal history of antineoplastic chemotherapy; Z92.3 Personal history of irradiation; J44.9 Chronic obstructive pulmonary disease, unspecified; I10 Essential (primary) hypertension; F41.9 Anxiety disorder, unspecified
CPT/HCPCS: 70450; 70553; 80048; 80177; 80185; 80186; 81003; 82607; 82746; 82747; 83735; 84443; 85025; 87040; 87086; 94640; 95819; 96361; 96365; 96366; 99285